=== PATIENT | male | born 1935 | race Caucasian/White ===

== ENCOUNTER 2020-08-29 | Outpatient (REF) | payer MEDICARE, SELFPAY | END 2020-08-29 00:01 | disposition home or self-care (01) | LOC: HO.VC | PROVIDERS: Visit Provider Internal Medicine | DX: Z23 Encounter for immunization (principal) | CPT/HCPCS: 0011A ==

== ENCOUNTER 2020-09-25 | Outpatient (REF) | payer MEDICARE, SELFPAY | END 2020-09-25 00:01 | disposition home or self-care (01) | LOC: HO.VC | PROVIDERS: Visit Provider Internal Medicine | DX: Z23 Encounter for immunization (principal) | CPT/HCPCS: 0012A ==

== ENCOUNTER 2021-02-03 11:53 | Emergency (ER) | payer OTHER, MEDICARE, SELFPAY ==
--- NOTE | ~2021-02-03 | CT_ITS ---
EXAMINATION: CT CERVICAL SPINE WITHOUT CONTRAST CLINICAL INFORMATION: Fall head injury COMPARISON: None TECHNIQUE: Noncontrast head CT This CT examination was performed using dose optimization techniques as appropriate, variously including the following: *Automated exposure control *Adjustment of mA and/or kV according to patient size (this includes techniques or standardized protocols for targeted exams where dose is matched to indication/reason for exam; i.e. extremities or head) *Use of iterative reconstruction technique DLP: 777 mGy-cm FINDINGS: There is radiolucent line through the odontoid process of C2 concerning for subtle nondisplaced hairline fracture, refer image 96 series 12. There is adjacent calcification of the posterior transverse ligament. All other cervical vertebrae are identified maintaining proper height and alignments. No other fractures. Spinous processes are intact. Narrowing of disc spaces and developed osteophyte from the edges of endplates at all levels C2-C3 through C7-T1 suggests underlying degenerative disc disease. There are foraminal narrowings at all levels caused by developed osteophytes and adjacent facet joint hypertrophy. Included structures at skull base are intact. There are degenerative osteoarthritic changes of right TMJ. Included lung apices are clear. CT/CT cervical spine wo con IMPRESSION: 1. Very subtle nondisplaced incomplete hairline fracture through the odontoid process. Encarnacion image. 2. Underlying advanced degenerative disc disease, loss of disc height and developed osteophyte from the edges of endplates. This is seen at all levels. 3. Foraminal stenosis at multiple levels, if patient has neurological symptoms may consider correlation with MRI to assess for possible underlying nerve impingement.
--- NOTE | ~2021-02-03 | CT_ITS ---
CT head/brain wo con CLINICAL INFORMATION: Reason for Exam fall and head injury COMPARISON: 2019 TECHNIQUE: Department standard protocol. This CT examination was performed using dose optimization techniques as appropriate, variously including the following: *Automated exposure control *Adjustment of mA and/or kV according to patient size (this includes techniques or standardized protocols for targeted exams where dose is matched to indication/reason for exam; i.e. extremities or head) *Use of iterative reconstruction technique DLP: 787 mGy-cm FINDINGS: CEREBRAL HEMISPHERES: There is no evidence of intra-axial or extra-axial mass, hemorrhage or acute infarct. BRAIN PARENCHYMA: Deep white matter and paraventricular hypoattenuation, nonspecific; most likely changes secondary to chronic ischemia due to microvascular angiopathy. SUBDURAL SPACE: No bleed. BASAL GANGLIA AND PINEAL GLAND: Unremarkable VENTRICLES: Ventricles are symmetrically dilated, symmetric ventriculomegaly raise concern for possible NPH. This is slightly out of proportion to the degree of atrophy. There is however not significantly changed from prior exam. CEREBELLUM AND BRAINSTEM: No space-occupying mass, hemorrhage or acute infarct. CEREBELLOPONTINE ANGLES: No lesion found. ORBITS: No intraorbital mass. VESSELS: Unremarkable SKULL BASE: Unremarkable INCLUDED SINUSES AT SKULL BASE: Clear SKULL AND SKIN: No fracture or bone lesion found. CT/CT head/brain wo con IMPRESSION: Deep white matter and periventricular hypoattenuation, nonspecific; most likely sequela of chronic microvascular angiopathy ischemia. Bilateral ventriculomegaly, this is symmetrically involving all ventricles, concerning for possible NPH, this however not significantly changed from prior exam. Please correlate with patient's clinical symptoms.
[2021-02-03 12:08] VITALS: BP 109/84; BP 152/82; PULSE 78; RESP 20; TEMP 36.9; O2SAT 96; BMI 28.8
[2021-02-03] MEDS: Lidocaine HCl 1 % MPF 5 ML VIAL 10 ML SUBCUT (12:13)
--- NOTE | 2021-02-03 12:16 | ED_ITS ---
HPI - Fall General Chief Complaint: Fall Stated Complaint: FALL, HIT HEAD Time Seen by Provider: 02/03/21 11:59 Source: patient and EMS Mode of arrival: EMS Limitations: no limitations History of Present Illness HPI Narrative: 85 years old male came in for evaluation of head injury. Patient was sitting on and on the edge of the bed around trying to go to the bathroom patient lost balance and fell hit his head at the corner of a table sustained a sizable laceration involving the forehead and the top of his scalp. Patient declined LOC, no headache, no LOC, patient declined any other injuries, patient with GCS of 15 Related Data Home Medications Medication Instructions Recorded Confirmed amlodipine 1 tab PO DAILY 09/25/20 12/19/20 donepezil 1 tab PO BEDTIME 09/25/20 12/19/20 hydrochlorothiazide 1 tab PO DAILY 09/25/20 12/19/20 memantine 1 tab PO BID 09/25/20 12/19/20 quetiapine 1 tab PO DAILY 09/25/20 12/19/20 sertraline 1 tab PO DAILY 09/25/20 12/19/20 Previous Rx's Medication Instructions Recorded potassium chloride 10 mEq 20 meq PO BID #180 cap 06/26/20 capsule,extended release Allergies Allergy/AdvReac Type Severity Reaction Status Date / Time methotrexate [METHOTREXATE] Allergy Unknown SEIZURE, Verified 12/19/20 11:13 SEIZURES Review of Systems Review of Systems: All other systems are reviewed and are negative Constitutional: Reports as per HPI and Reports no additional constitutional complaints Eyes: Reports as per HPI and Reports no additional eye complaints Reports system reviewed and no additional complaints, except as documented Cardiovascular: Reports as per HPI and Reports no additional cardiovascular complaints Respiratory: Reports as per HPI and Reports no additional respiratory complaints Gastrointestinal: Reports as per HPI and Reports no additional gastrointestinal complaints Genitourinary: Reports no additional female genitourinary complaints Musculoskeletal: Reports no additional musculoskeletal complaints Skin/Breast: Reports system reviewed and no additional complaints, except as docu Psychiatric: Reports no additional psychiatric complaints Endocrine: Reports no additional endocrine complaints Hematologic/Lymphatic: Reports no additional hematologic/lymphatic complaints Allergic/Immunologic: Reports no additional allergic/immunologic complaints Reports system reviewed and no additional complaints, except as documented and Reports Abnormal speech present [facility] Past Medical History Medical History Dementia Eczema Frequent falls HTN (hypertension) Prostate cancer Psoriasis Seizure TIA (transient ischemic attack) Surgical History History of prostatectomy History of surgery Family History Family History Father Myocardial infarction Mother Acute CVA (cerebrovascular accident) Breast cancer Sister Breast cancer Family/Other Leukemia Social History Social History Alcohol intake: current Alcohol intake frequency: holidays/special occasions only Alcohol type: wine Patient Tobacco Use Status: Former Tobacco user Tobacco use type: Cigarette Second Hand Smoke Exposure: No Advance Directives: No Advance Directives Information Provided: Yes Physical Exam Vital Signs: Vital Signs: Last Vital Signs Temp 98.4 F 02/03/21 12:08 Pulse 78 02/03/21 12:08 Resp 20 02/03/21 12:08 BP 109/84 02/03/21 12:08 Pulse Ox 96 02/03/21 12:08 Body Mass Index 28.8 Vital signs have been reviewed as appeared to be correct. Blood pressure normal. Heart rate normal. Respiration rate normal. Temperature normal. Oxygen saturation normal. Appearance: Alert. Oriented X3. No acute distress. Head: 10 cm laceration involving middle of the forehead and going up to the scalp with minor bleeding. Galea is intact. Eyes: PERRLA. EOMI. Conjunctiva and sclera normal. Eyelids normal. ENT: TM's Normal. Pharynx normal. Uvula midline. Moist mucous membranes. No trismus noted. No drooling noted. No muffled voice noted. Neck: Normal inspection, C-collar is in place, using the cervical spine immobilization precaution there is no step-off or deformity. CVS: Normal heart rate and rhythm. Heart sound normal. No murmurs noted. Pulses normal throughout. Respiratory: No respiratory distress. Painless inspiration. Breath sounds normal. No wheezes/rales/rhonchi noted. Chest nontender. No accessory muscle usage noted or decreased air movement noted. Abdomen: Soft and nontender. Bowel sounds normal in all 4 quadrants. No distention noted. No organomegaly noted. No visible injury noted. Back: No CVA tenderness. Full range of motion noted. Skin: Skin warm and dry. Normal skin color. Normal skin turgor. No rashes/lesions/lacerations noted. Extremities: No lower extremity edema. Extremities exhibit normal range of motion. Extremities nontender. Neuro: Oriented. No motor deficit. No sensory deficit. GCS of 15. Course Course Course Narrative: Assessment and plan. 85-year-old male came in for evaluation after mechanical fall for head injury and laceration. Patient was GCS of 15, normal neuro exam, head CT is unremarkable. Cervical spine CT showed hairline nondisplaced fracture of odontoid process, repeat neuro exam show no deficit, patient is in C-collar and complete cervical spine immobilization precaution. The case discussed with Dr. Connors from [facility] ED, patient will be transferred to [facility] for further trauma evaluation. Procedures Laceration Laceration 1: Site: scalp and face Size (cm): 10 Description: linear Depth: simple, single layer Local Anesthetic: lidocaine 1% Amount of anesthesia used (mL): 10 Pre-repair: wound explored Skin layer closed with: other (Eighteen stable placed at the scalp portion, Dermabond at the forehead portion + 7 suture of 4-0 nylon) MDM - Fall Imaging Data Head CT: Radiologist's impression: Deep white matter and periventricular hypoattenuation, nonspecific; most likely sequela of chronic microvascular angiopathy ischemia. Bilateral ventriculomegaly, this is symmetrically involving all ventricles, concerning for possible NPH, this however not significantly changed from prior exam. Please correlate with patient's clinical symptoms. C-spine CT: Radiologist's impression: There is radiolucent line through the odontoid process of C2 concerning for subtle nondisplaced hairline fracture, refer image 96 series 12. There is adjacent calcification of the posterior transverse ligament. All other cervical vertebrae are identified maintaining proper height and alignments. No other fractures. Spinous processes are intact. Narrowing of disc spaces and developed osteophyte from the edges of endplates at all levels C2-C3 through C7-T1 suggests underlying degenerative disc disease. There are foraminal narrowings at all levels caused by developed osteophytes and adjacent facet joint hypertrophy. Included structures at skull base are intact. There are degenerative osteoarthritic changes of right TMJ. Included lung apices are clear. Discharge Plan Discharge Clinical Impression: Closed head injury Qualifiers: Encounter type: initial encounter Qualified Code(s): S09.90XA - Unspecified injury of head, initial encounter Facial laceration Qualifiers: Encounter type: initial encounter Qualified Code(s): S01.81XA - Laceration without foreign body of other part of head, initial encounter Odontoid fracture Qualifiers: Encounter type: initial encounter Fracture type: closed Qualified Code(s): S12.100A - Unspecified displaced fracture of second cervical vertebra, initial encounter for closed fracture Patient Disposition: [facility] Transfer Details: To the emergency department Prescriptions: No Action potassium chloride 10 mEq capsule, extended release 20 meq PO BID Qty: 180 RF: 8 quetiapine 25 mg tablet 1 tab PO DAILY RF: 0 donepezil 10 mg tablet 1 tab PO BEDTIME RF: 0 amlodipine 10 mg tablet 1 tab PO DAILY RF: 0 hydrochlorothiazide 25 mg tablet 1 tab PO DAILY RF: 0 sertraline 50 mg tablet 1 tab PO DAILY RF: 0 memantine 10 mg tablet 1 tab PO BID RF: 0 Referrals: Yosef Monreal MD [Primary Care Provider] - 2 days
[2021-02-03] MEDS: Diphth,Pertus(ACell),Tet Adult 0.5 ML SYRINGE IM (12:40)
[2021-02-03 15:02] LABS: COVID-19 Test Negative (Negative)
== END 2021-02-03 15:20 | disposition short-term general hospital (02) ==
PROVIDERS: Emergency Provider Emergency Medicine; PCP Internal Medicine
DX: S01.81XA Laceration without foreign body of other part of head, initial encounter (principal); S12.110A Anterior displaced Type II dens fracture, initial encounter for closed fracture; I10 Essential (primary) hypertension; Z86.73 Personal history of transient ischemic attack (TIA), and cerebral infarction without residual deficits; W18.30XA Fall on same level, unspecified, initial encounter; Y93.9 Activity, unspecified; Y92.9 Unspecified place or not applicable; Y99.9 Unspecified external cause status; Z20.822 Contact with and (suspected) exposure to COVID-19
CPT/HCPCS: 12015; 36415; 70450; 72125; 87635; 90471; 90715; 99285

== ENCOUNTER 2021-03-20 23:44 | Emergency (ER) | payer OTHER, SELFPAY ==
--- NOTE | ~2021-03-20 | CT_ITS ---
EXAMINATION: NONCONTRAST HEAD CT NONCONTRAST CERVICAL SPINE CT INDICATION INFORMATION: Status post fall COMPARISON: 02/03/2021 TECHNIQUE: Separate noncontrast CT examinations of the head and cervical spine were performed. Coronal head CT images and coronal and sagittal cervical spine images were created at the technologist workstation. DLP: 1175 mGy-cm DOSE LOWERING TECHNIQUES: This CT examination was performed using dose optimization techniques as appropriate, variously including the following: - Automated exposure control - Adjustment of mA and/or kV according to patient size (this includes techniques or standardized protocols for targeted exams were dose is matched to indication/reason for exam; i.e. extremities or head) - Use of iterative reconstruction technique FINDINGS: Head: There is no evidence of acute intracranial hemorrhage or territorial infarction. No abnormal mass-effect or midline shift is seen. Downey to white matter differentiation is well preserved. No extra-axial fluid collections are identified. The ventricles are normal in size. There is mild periventricular white matter hypoattenuation consistent with chronic small vessel ischemic disease. Moderate volume loss is noted. No acute fracture is seen. Right temporoparietal scalp skin val are noted. The mastoid air cells and visualized portions of the paranasal sinuses are well-aerated. Cervical spine: There is anatomic alignment of the vertebral bodies and posterior elements. Vertebral body heights are maintained. There is disc space narrowing of the mid to lower lumbar spine with associated endplate osteophytes. Multilevel facet arthropathy is present, right-sided worse than left. No evidence of acute fracture. No prevertebral soft tissue swelling. Visualized portions of the lung apices are unremarkable. The thyroid gland is unremarkable. CT/CT cervical spine wo con IMPRESSION: 1. Head: No acute intracranial findings. Chronic small vessel ischemic disease and volume loss. 2. Cervical spine: No acute findings identified. Multilevel degenerative changes.
[2021-03-20 23:59] VITALS: BP 142/80; BP 150/84; PULSE 105; PULSE 85; RESP 16; TEMP 35.9; O2SAT 96; O2SAT 97; BMI 23.6
--- NOTE | 2021-03-21 01:26 | ED_ITS ---
HPI - Fall General Chief Complaint: Wound/Laceration Stated Complaint: fall/lac Time Seen by Provider: 03/20/21 23:48 Source: patient and EMS Mode of arrival: EMS Limitations: no limitations History of Present Illness HPI Narrative: Patient was trying to get up from the bed to go to bathroom without walker lost balance hit his right side of the head to the table came with a laceration on the right christianity no loss of consciousness no other injury Related Data Home Medications Medication Instructions Recorded Confirmed amlodipine 10 mg tablet 1 tab PO DAILY 09/25/20 12/19/20 donepezil 10 mg tablet 1 tab PO BEDTIME 09/25/20 12/19/20 hydrochlorothiazide 25 mg tablet 1 tab PO DAILY 09/25/20 12/19/20 memantine 10 mg tablet 1 tab PO BID 09/25/20 12/19/20 quetiapine 25 mg tablet 1 tab PO DAILY 09/25/20 12/19/20 sertraline 50 mg tablet 1 tab PO DAILY 09/25/20 12/19/20 Previous Rx's Medication Instructions Recorded potassium chloride 10 mEq 20 meq PO BID #180 cap 06/26/20 capsule,extended release Allergies Allergy/AdvReac Type Severity Reaction Status Date / Time methotrexate [METHOTREXATE] Allergy Unknown SEIZURE, Verified 12/19/20 11:13 SEIZURES Review of Systems Review of Systems: Yes all other systems are reviewed and are negative PMFSH Past Medical History Medical History Dementia Eczema Frequent falls HTN (hypertension) Prostate cancer Psoriasis Seizure TIA (transient ischemic attack) Surgical History History of prostatectomy History of surgery Family History Family History Father Myocardial infarction Mother Acute CVA (cerebrovascular accident) Breast cancer Sister Breast cancer Family/Other Leukemia Social History Social History Alcohol intake: current Alcohol intake frequency: holidays/special occasions only Alcohol type: wine Patient Tobacco Use Status: Former Tobacco user Tobacco use type: Cigarette Second Hand Smoke Exposure: No Advance Directives: No Advance Directives Information Provided: No Physical Exam Vital Signs: Vital Signs: Last Vital Signs Temp 96.6 F L 03/20/21 23:59 Pulse 85 03/20/21 23:59 Resp 16 03/20/21 23:59 BP 142/80 H 03/20/21 23:59 Pulse Ox 97 03/20/21 23:59 Body Mass Index 23.6 Const: General: comfortable, well developed, alert and awake Orientation/consciousness: patient oriented x3 HENMT: Head: Yes normocephalic Head images: 1. 10 cm long laceration above right eye pain on the right christianity area Ears: hearing grossly normal bilaterally Face and sinus: Yes normal facial exam Eyes: General: appearance normal, both eyes and all related structures Neck: Neck: Yes full ROM and No tender Chest: Chest palpation & inspection: normal inspection of the chest and normal palpation of entire chest wall Resp: Effort & Inspection: normal respiratory effort Auscultation: clear to auscultation bilaterally Cardio: Palpation: normal PMI Rate: regular rate Rhythm: regular rhythm Heart sounds: S1 normal heart sound present and S2 normal heart sound present GI: Inspection: Yes normal to inspection Palpation (GI): Soft to palpation and nontender Auscultation: normal bowel sounds : General: Yes no CVA tenderness Back/Spine/Pelvis: Back: no CVA tenderness Thoracic/Lumbar Spine: No thoracic spinal tenderness and No lumbar spinal tenderness Neuro: General: patient oriented x3 and no focal motor deficits Procedures Laceration Laceration 1: Site: scalp Side (If applicable): right Size (cm): 15 Description: linear Depth: simple, single layer Skin layer closed with: other (Newcomb#[id number]) MDM - Fall MDM Narrative Medical decision making narrative: Patient status post mechanical fall with head laceration CT scan head and C-spine negative laceration repaired with using st aples patient is able to ambulate in the ER using 6 walker family is at bedside will discharge patient home Discharge Plan Discharge Clinical Impression: Laceration Head injury Qualifiers: Encounter type: initial encounter Qualified Code(s): S09.90XA - Unspecified injury of head, initial encounter Patient Disposition: Home, Self-Care Instructions: Head Injury (ED), Head Laceration (ED) Additional Instructions: Local care of the wound as advised Care and caution when ambulating, use walker Staple removal in 2 weeks Prescriptions: No Action potassium chloride 10 mEq capsule, extended release 20 meq PO BID Qty: 180 RF: 8 quetiapine 25 mg tablet 1 tab PO DAILY RF: 0 donepezil 10 mg tablet 1 tab PO BEDTIME RF: 0 amlodipine 10 mg tablet 1 tab PO DAILY RF: 0 hydrochlorothiazide 25 mg tablet 1 tab PO DAILY RF: 0 sertraline 50 mg tablet 1 tab PO DAILY RF: 0 memantine 10 mg tablet 1 tab PO BID RF: 0
== END 2021-03-21 01:36 | disposition home or self-care (01) ==
PROVIDERS: Emergency Provider Internal Medicine
DX: S01.01XA Laceration without foreign body of scalp, initial encounter (principal); S09.90XA Unspecified injury of head, initial encounter; W06.XXXA Fall from bed, initial encounter; I10 Essential (primary) hypertension; F03.90 Unspecified dementia, unspecified severity, without behavioral disturbance, psychotic disturbance, mood disturbance, and anxiety; Y93.89 Activity, other specified; Y92.013 Bedroom of single-family (private) house as the place of occurrence of the external cause; Y99.9 Unspecified external cause status; Z91.81 History of falling; Z86.73 Personal history of transient ischemic attack (TIA), and cerebral infarction without residual deficits; Z85.46 Personal history of malignant neoplasm of prostate
CPT/HCPCS: 12005; 70450; 72125; 99284

== ENCOUNTER 2021-04-19 13:55 | Emergency (ER) | payer OTHER, SELFPAY ==
--- NOTE | ~2021-04-19 | XR_ITS ---
EXAMINATION: RIGHT HAND CLINICAL INFORMATION: Fall with swelling and pain COMPARISON: None TECHNIQUE: 4 views right hand and wrist FINDINGS: No acute fracture or dislocation is evident. There is calcification seen about the region of the triangular fibrocartilage as well as radiocarpal joint superiorly and inferiorly. There is evidence of old avulsion injury about the medial base of the first proximal phalanx. The metacarpophalangeal joints are maintained as are the proximal interphalangeal joints. There is some degenerative spurring seen involving the second, third, and fifth distal interphalangeal joints. No definite erosive changes are identified. No gas within the soft tissues is appreciated. XR/XR hand wrist RT IMPRESSION: No acute fracture or dislocation of the right hand. Degenerative change as described.
[2021-04-19 14:07] VITALS: BP 133/62; PULSE 75; RESP 18; TEMP 36.8; O2SAT 97; BMI 23.6
--- NOTE | 2021-04-19 14:28 | ED.EXTPRO ---
HPI - Extremity Problem General Chief complaint: Extremity Injury, Upper Stated complaint: FALL HAND INJ Time Seen by Provider: 04/19/21 14:14 Source: family () Mode of arrival: wheelchair Limitations: other (dementia) History of Present Illness HPI Narrative: 86-year-old male with dementia here with his for right hand injury he sustained 3 days ago. Patient saw the patient fall, onto his hands and knees. Patient did not hit his head, no loss of consciousness, is not on any blood thinners. Physical therapy who comes to the house, checked patient's arm, and it seemed fine. However, 3 days ago patient's hand became more swollen, and has been red and warm. Patient states it is painful, but cannot localize the pain MD Complaint: extremity pain and extremity swelling Onset (ago): day(s) (3) Pain Consistency: constant Location: right Quality: aching Radiation: none Relieving factors: medication Exacerbating factors: range of motion Associated symptoms: denies other symptoms Related Data Home Medications Medication Instructions Recorded Confirmed amlodipine 10 mg tablet 1 tab PO DAILY 09/25/20 12/19/20 donepezil 10 mg tablet 1 tab PO BEDTIME 09/25/20 12/19/20 hydrochlorothiazide 25 mg tablet 1 tab PO DAILY 09/25/20 12/19/20 memantine 10 mg tablet 1 tab PO BID 09/25/20 12/19/20 quetiapine 25 mg tablet 1 tab PO DAILY 09/25/20 12/19/20 sertraline 50 mg tablet 1 tab PO DAILY 09/25/20 12/19/20 Previous Rx's Medication Instructions Recorded potassium chloride 10 mEq 20 meq PO BID #180 cap 06/26/20 capsule,extended release cephalexin 500 mg capsule 500 mg PO QID 7 Days #28 cap 04/19/21 Allergies Allergy/AdvReac Type Severity Reaction Status Date / Time methotrexate [METHOTREXATE] Allergy Unknown SEIZURE, Verified 12/19/20 11:13 SEIZURES Review of Systems Review of Systems: Unable to obtain d/t dementis; states no fevers, no cough, no URI symptoms, no V/N/D, that patient is in his usual state of health Neurologic: Reports confusion Psychiatric: Psychiatric: Reports confusion PMFSH Past Medical History Medical History Dementia Eczema Frequent falls HTN (hypertension) Prostate cancer Psoriasis Seizure TIA (transient ischemic attack) Surgical History History of prostatectomy History of surgery Family History Family History Father Myocardial infarction Mother Acute CVA (cerebrovascular accident) Breast cancer Sister Breast cancer Family/Other Leukemia Social History Social History Alcohol intake: current Alcohol intake frequency: holidays/special occasions only Alcohol type: wine Patient Tobacco Use Status: Former Tobacco user Tobacco use type: Cigarette Second Hand Smoke Exposure: No Advance Directives: Yes Advance Directives Information Provided: Yes Advance Directives on File: No Physical Exam Vital Signs: Vital Signs: Last Vital Signs Temp 98.1 F 04/19/21 15:13 Pulse 75 04/19/21 15:13 Resp 18 04/19/21 15:13 BP 131/70 04/19/21 15:13 Pulse Ox 97 04/19/21 14:07 Body Mass Index 23.6 Const: General: no acute distress, alert, awake, confusion and poor hygiene Orientation/consciousness: confusion Limitations: other limitations (dementia) HENMT: Head: Yes normal to inspection, Yes normocephalic and Yes atraumatic Ears: hearing grossly normal bilaterally, external ears normal, TM's normal bilaterally and EAC's normal General nose exam: Normal external nose present Face and sinus: Yes normal facial exam and Yes sinuses nontender Mouth: Normal oral and palatal mucosa present Throat: Yes posterior oropharynx normal Eyes: Conjunctivae: conjunctivae normal Pupils: Equal, round and reactive pupils present EOM: EOMs intact bilaterally Neck: Neck: Yes full ROM, Yes no lymphadenopathy and Yes supple Resp: Effort & Inspection: normal respiratory effort and able to speak in complete sentences Auscultation: clear to auscultation bilaterally, no crackles, no rales, no rhonchi and no wheezes Cardio: Rate: regular rate Rhythm: regular rhythm Heart sounds: S1 normal heart sound present and S2 normal heart sound present Skin: Other: Hand is red, warm, and swollen diffusely Neuro: General: tone normal, moves all extremities and confusion Cranial nerves: Yes Equal, round and reactive pupils present Extrem: Other: Hand diffusely red warm and swollen, no point tenderness on wrist or bones of hand Right upper extremity: full ROM, normal capillary refill, edema and Extremity exam: right hand Details: normal capillary refill, neuromotor exam normal, neurosensory exam normal, vascular exam Details: radial pulse present Details: 2+ and normal ROM of fingers Psych: Appearance: grossly normal Affect: normal affect Attitude: cooperative Thought process: Normal thought process present Course Course Course Narrative: Right hand x-ray negative for acute fracture. Started patient on cephalexin, this looks like a cellulitis. Counseled to return hand is not less swollen and red by Thursday Discharge Plan Discharge Clinical Impression: Cellulitis Qualifiers: Site of cellulitis: extremity Site of cellulitis of extremity: upper extremity Laterality: right Qualified Code(s): L03.113 - Cellulitis of right upper limb Patient Disposition: Home, Self-Care Instructions: Cellulitis (ED) Additional Instructions: Please elevate right hand as much as possible as we discussed. Please return to be seen if by Thursday Adrian hand is still red hot swollen or he has any fevers. Please start the antibiotics and give it to him every 6 hours. Prescriptions: New cephalexin 500 mg capsule 500 mg PO QID 7 Days Qty: 28 RF: 0 No Action potassium chloride 10 mEq capsule, extended release 20 meq PO BID Qty: 180 RF: 8 quetiapine 25 mg tablet 1 tab PO DAILY RF: 0 donepezil 10 mg tablet 1 tab PO BEDTIME RF: 0 amlodipine 10 mg tablet 1 tab PO DAILY RF: 0 hydrochlorothiazide 25 mg tablet 1 tab PO DAILY RF: 0 sertraline 50 mg tablet 1 tab PO DAILY RF: 0 memantine 10 mg tablet 1 tab PO BID RF: 0
[2021-04-19 15:13] VITALS: BP 131/70; PULSE 75; RESP 18; TEMP 36.7
== END 2021-04-19 16:00 | disposition home or self-care (01) ==
PROVIDERS: Emergency Provider Emergency Medicine; PCP Internal Medicine
DX: L03.113 Cellulitis of right upper limb (principal); M79.641 Pain in right hand; Z87.891 Personal history of nicotine dependence; Z79.899 Other long term (current) drug therapy
CPT/HCPCS: 73110; 73130; 99283; 99284

== ENCOUNTER 2021-04-23 12:13 | Inpatient (IN) | payer OTHER, MEDICARE, SELFPAY ==
--- NOTE | ~2021-04-23 | US_ITS ---
EXAMINATION: US VENOUS WITH DOPPLER UPPER EXTREMITY, RIGHT CLINICAL INFORMATION: Right upper extremity cellulitis. Assess for occult DVT. COMPARISON: Radiographs right hand wrist 04/19/2021. TECHNIQUE: Ultrasound of the upper extremity is performed using compression sonography and color and pulse Doppler flow with assessment of augmentation of flow. There is also imaging and Doppler assessment of the jugular and subclavian veins. Spectral analysis with color-flow imaging is performed. FINDINGS: Respiratory variation, normal compression, and augmented flow are noted throughout the upper extremity deep veins including the axillary, brachial, cubital, and radial and ulnar veins. There is normal flow in the internal jugular and subclavian veins. There is no visible deep vein thrombophlebitis. There is normal variant with duplicated brachial vein. The basilic superficial vein is not visualized and therefore not evaluated. The cephalic superficial vein is unremarkable. No visible superficial thrombophlebitis. There are some scattered nodes present in the upper arm with normal sarah architecture and color flow. Largest node only 0.4 cm short axis. No soft tissue fluid collection demonstrated. US/US venous duplex UE RT IMPRESSION: No DVT demonstrated in the right upper extremity.
[2021-04-23 12:17] VITALS: BP 133/70; PULSE 80; RESP 18; TEMP 36.8; O2SAT 98; BMI 22.8
--- NOTE | 2021-04-23 14:01 | ED_ITS ---
HPI - General Adult General Chief complaint: General Medical Stated complaint: rt wrist cellulitis, fever Time Seen by Provider: 04/23/21 13:50 Source: patient and family (Daughter) Mode of arrival: ambulatory Limitations: no limitations History of Present Illness HPI narrative: 86-year-old male came in for evaluation right arm cellulitis. Patient was seen in the emergency department 4 days ago and was diagnosed with right arm cellulitis patient was sent home on Keflex, visiting nurse noted today that he had fever in the morning, with extension of the cellulitis to almost the whole entire right arm. Patient otherwise declined any symptoms. Related Data Home Medications Medication Instructions Recorded Confirmed amlodipine 10 mg tablet 1 tab PO DAILY 09/25/20 04/23/21 donepezil 10 mg tablet 1 tab PO BEDTIME 09/25/20 04/23/21 hydrochlorothiazide 25 mg tablet 1 tab PO DAILY 09/25/20 04/23/21 memantine 10 mg tablet 1 tab PO BID 09/25/20 04/23/21 quetiapine 25 mg tablet 1 tab PO DAILY PRN 09/25/20 04/23/21 sertraline 50 mg tablet 1 tab PO DAILY 09/25/20 04/23/21 Previous Rx's Medication Instructions Recorded potassium chloride 10 mEq 20 meq PO BID #180 cap 06/26/20 capsule,extended release cephalexin 500 mg capsule 500 mg PO QID 7 Days #28 cap 04/19/21 Allergies Allergy/AdvReac Type Severity Reaction Status Date / Time methotrexate [METHOTREXATE] Allergy Unknown SEIZURE, Verified 04/23/21 12:17 SEIZURES Review of Systems Review of Systems: All other systems are reviewed and are negative Constitutional: Reports as per HPI and Reports no additional constitutional complaints Eyes: Reports as per HPI and Reports no additional eye complaints Reports system reviewed and no additional complaints, except as documented Cardiovascular: Reports as per HPI and Reports no additional cardiovascular complaints Respiratory: Reports as per HPI and Reports no additional respiratory complaints Gastrointestinal: Reports as per HPI and Reports no additional gastrointestinal complaints Genitourinary: Reports no additional female genitourinary complaints Musculoskeletal: Reports no additional musculoskeletal complaints Skin/Breast: Reports system reviewed and no additional complaints, except as docu Psychiatric: Reports no additional psychiatric complaints Endocrine: Reports no additional endocrine complaints Hematologic/Lymphatic: Reports no additional hematologic/lymphatic complaints Allergic/Immunologic: Reports no additional allergic/immunologic complaints Reports system reviewed and no additional complaints, except as documented and Reports Abnormal speech present [facility] Past Medical History Medical History Dementia Eczema Frequent falls HTN (hypertension) Prostate cancer Psoriasis Seizure TIA (transient ischemic attack) Surgical History History of prostatectomy History of surgery Family History Family History Father Myocardial infarction Mother Acute CVA (cerebrovascular accident) Breast cancer Sister Breast cancer Family/Other Leukemia Social History Social History Alcohol intake: current Alcohol intake frequency: holidays/special occasions only Alcohol type: wine Patient Tobacco Use Status: Former Tobacco user Tobacco use type: Cigarette Second Hand Smoke Exposure: No Advance Directives: Yes Advance Directives Information Provided: Yes Advance Directives on File: No Physical Exam Vital Signs: Vital Signs: Last Vital Signs Temp 98.3 F 04/23/21 12:17 Pulse 80 04/23/21 12:17 Resp 18 04/23/21 12:17 BP 133/70 04/23/21 12:17 Pulse Ox 98 04/23/21 12:17 Body Mass Index 22.8 Vital signs have been reviewed as appeared to be correct. Blood pressure normal. Heart rate normal. Respiration rate normal. Temperature normal. Oxygen saturation normal. Appearance: Alert. Oriented X3. No acute distress. Head: Normal external exam. Normocephalic. Atraumatic. No Cuevas signs noted. No raccoon eyes noted Eyes: PERRLA. EOMI. Conjunctiva and sclera normal. Eyelids normal. ENT: TM's Normal. Pharynx normal. Uvula midline. Moist mucous membranes. No trismus noted. No drooling noted. No muffled voice noted. Neck: Normal inspection. Neck supple. FROM. No adenopathy. Thyroid Normal. No meningeal signs. No neck mass noted. CVS: Normal heart rate and rhythm. Heart sound normal. No murmurs noted. Pulses normal throughout. Respiratory: No respiratory distress. Painless inspiration. Breath sounds normal. No wheezes/rales/rhonchi noted. Chest nontender. No accessory muscle usage noted or decreased air movement noted. Abdomen: Soft and nontender. Bowel sounds normal in all 4 quadrants. No distention noted. No organomegaly noted. No visible injury noted. Back: No CVA tenderness. Full range of motion noted. Skin: Skin warm and dry. Normal skin color. Normal skin turgor. No rashes/lesions/lacerations noted. Extremities: Right upper extremities: There is diffuse swelling, redness, and hotness to almost the entire right upper extremity, neurovascularly intact. Neuro: Oriented X 3. Cranial nerve exam: II-XII are grossly intact No motor deficit. No sensory deficit. Reflexes normal. Course Course Course Narrative: Assessment and plan. 86-year-old male with right arm cellulitis that is worsening despite using Keflex p.o. as an outpatient, patient do not meet SIRS criteria, ultrasound ayden wed no evidence of DVT to the right arm. Patient failed outpatient p.o. antibiotic intake. Will admit the patient for IV antibiotic. Medical Decision Making Lab Data Lab results reviewed: Yes I reviewed the patient's lab results. Result diagrams: 04/23/21 14:16 04/23/21 14:11 Labs: Lab Results 04/23/21 04/23/21 04/23/21 Range/Units 14:09 14:11 14:11 WBC (4.8-10.8) X10*3/uL RBC (4.60-5.80) X10*6/uL Hgb (14.0-18.0) g/dl Hct (42-52) % MCV (80-98) fL MCH (27.0-33.0) pg MCHC (31.0-36.0) g/dl RDW (11.0-16.0) % Plt Count (160-400) X10*3/uL MPV (9.4-12.4) fL Immature Gran % (Auto) (0.0-0.4) % Neut % (Auto) (45-73) % Lymph % (Auto) (20-40) % Otero % (Auto) (2-11) % Eos % (Auto) (0-4) % Baso % (Auto) (0-2) % Lymph # (Auto) (1.2-4.9) X10*3/uL Otero # (Auto) (0.1-1.2) X10*3/uL Eos # (Auto) (0.0-0.4) X10*3/uL Baso # (Auto) (0.0-0.2) X10*3/uL Abs Immat Gran (auto) (0.00-0.03) X10*3/uL Absolute Neuts (auto) (2.0-8.3) X10*3/uL Absolute Nucleated RBC (0.0-0.012) X10*3/uL Nucleated RBC % (auto) (0.0-0.2) /100WBC Sodium 140 (135-145) mmol/L Potassium 3.7 (3.3-5.1) mmol/L Chloride 103 (96-108) mmol/L Carbon Dioxide 28 (22-29) mmol/L Anion Gap 13 (12-20) BUN 15 (9-16) mg/dL Creatinine 1.04 (0.5-1.4) mg/dL Estim Creat Clear Calc 52.5 Estimated GFR > 60 Random Glucose 92 (60-115) mg/dL Lactic Acid 1.4 (0.5-2.0) mmol/L Calcium 10.2 (8.4-10.2) mg/dL Total Bilirubin 0.6 (0.0-1.0) mg/dL Direct Bilirubin 0.2 (0.0-0.5) mg/dL AST 10 (5-37) U/L ALT 12 (0-40) U/L Alkaline Phosphatase 120 H (39-117) U/L Total Protein 6.9 (6.5-8.0) g/dL Albumin 4.0 (3.5-5.0) g/dL Lipase 52 (8-78) U/L COVID-19 (YASEMIN) Negative (Negative) COVID-19 Clin Com See Note 04/23/21 Range/Units 14:16 WBC 10.3 (4.8-10.8) X10*3/uL RBC 4.96 (4.60-5.80) X10*6/uL Hgb 14.3 (14.0-18.0) g/dl Hct 41.9 L (42-52) % MCV 84.5 (80-98) fL MCH 28.8 (27.0-33.0) pg MCHC 34.1 (31.0-36.0) g/dl RDW 13.6 (11.0-16.0) % Plt Count 282 (160-400) X10*3/uL MPV 9.8 (9.4-12.4) fL Immature Gran % (Auto) 0.4 (0.0-0.4) % Neut % (Auto) 74.7 H (45-73) % Lymph % (Auto) 11.4 L (20-40) % Otero % (Auto) 8.8 (2-11) % Eos % (Auto) 4.3 H (0-4) % Baso % (Auto) 0.4 (0-2) % Lymph # (Auto) 1.2 (1.2-4.9) X10*3/uL Otero # (Auto) 0.9 (0.1-1.2) X10*3/uL Eos # (Auto) 0.4 (0.0-0.4) X10*3/uL Baso # (Auto) 0.0 (0.0-0.2) X10*3/uL Abs Immat Gran (auto) 0.04 H (0.00-0.03) X10*3/uL Absolute Neuts (auto) 7.7 (2.0-8.3) X10*3/uL Absolute Nucleated RBC 0.000 (0.0-0.012) X10*3/uL Nucleated RBC % (auto) 0.0 (0.0-0.2) /100WBC Sodium (135-145) mmol/L Potassium (3.3-5.1) mmol/L Chloride (96-108) mmol/L Carbon Dioxide (22-29) mmol/L Anion Gap (12-20) BUN (9-16) mg/dL Creatinine (0.5-1.4) mg/dL Estim Creat Clear Calc Estimated GFR Random Glucose (60-115) mg/dL Lactic Acid (0.5-2.0) mmol/L Calcium (8.4-10.2) mg/dL Total Bilirubin (0.0-1.0) mg/dL Direct Bilirubin (0.0-0.5) mg/dL AST (5-37) U/L ALT (0-40) U/L Alkaline Phosphatase (39-117) U/L Total Protein (6.5-8.0) g/dL Albumin (3.5-5.0) g/dL Lipase (8-78) U/L COVID-19 (YASEMIN) (Negative) COVID-19 Clin Com Imaging Data Right upper extremities venous ultrasound: Radiologist's impression: No DVT demonstrated in the right upper extremity. Discharge Plan Discharge Clinical Impression: Cellulitis Qualifiers: Site of cellulitis: extremity Site of cellulitis of extremity: upper extremity Laterality: right Qualified Code(s): L03.113 - Cellulitis of right upper limb Patient Disposition: Admitted As Inpatient
[2021-04-23 14:22] LABS: MANUAL DIFF FLAG NO
[2021-04-23] MEDS: Piperacillin Sodium/Tazobactam 3.375 GM in 0.9 % Sodium Chloride 50 ML IV ×2 (14:22→22:27)
[2021-04-23] MEDS: 0.9 % Sodium Chloride 1,000 ML 999 ML IVCONT (14:22)
[2021-04-23 14:24] LABS: Basophils Percent Auto 0.4 % (0-2); Eosinophils Absolute Auto 0.4 X10*3/uL (0.0-0.4); Eosinophils Percent Auto 4.3 % (0-4); Hematocrit 41.9 % (42-52); Hemoglobin 14.3 g/dl (14.0-18.0); Imm Gran Abs Auto 0.04 X10*3/uL (0.00-0.03); Imm Gran Pct Auto 0.4 % (0.0-0.4); Lymphocytes Absolute Auto 1.2 X10*3/uL (1.2-4.9); Lymphocytes Percent Auto 11.4 % (20-40); Mean Corpuscular HGB Conc 34.1 g/dl (31.0-36.0); Mean Corpuscular Hemoglobin 28.8 pg (27.0-33.0); Mean Corpuscular Volume 84.5 fL (80-98); Mean Platelet Volume 9.8 fL (9.4-12.4); Monocytes Absolute Auto 0.9 X10*3/uL (0.1-1.2); Monocytes Percent Auto 8.8 % (2-11); Neutrophils Absolute Auto 7.7 X10*3/uL (2.0-8.3); Neutrophils Percent Auto 74.7 % (45-73); Platelet Count 282 X10*3/uL (160-400); Red Blood Count 4.96 X10*6/uL (4.60-5.80); Red Cell Distribution Width 13.6 % (11.0-16.0); White Blood Count 10.3 X10*3/uL (4.8-10.8)
--- NOTE | 2021-04-23 14:26 | PC.NURSE ---
20g lac placed and medicated per emar- pt to us at this time
[2021-04-23 14:33] LABS: Lactic Acid 1.4 mmol/L (0.5-2.0)
[2021-04-23 14:41] LABS: COVID-19 Test Negative (Negative); IDNOW Serial# 9DD0AD1C
[2021-04-23 14:44] LABS: Alanine Aminotransferase 12 U/L (0-40); Alkaline Phosphatase 120 U/L (39-117); Anion Gap 13 (12-20); Aspartate Amino Transferase 10 U/L (5-37); Bilirubin Direct 0.2 mg/dL (0.0-0.5); Bilirubin Total 0.6 mg/dL (0.0-1.0); Blood Urea Nitrogen 15 mg/dL (9-16); Calcium 10.2 mg/dL (8.4-10.2); Carbon Dioxide 28 mmol/L (22-29); Chloride 103 mmol/L (96-108); Creatinine Clr Calc Pharmacy 52.5; Estimated Glomerular Filt Rate > 60; Glucose Random 92 mg/dL (60-115); Lipase 52 U/L (8-78); Potassium 3.7 mmol/L (3.3-5.1); Sodium 140 mmol/L (135-145); Total Protein 6.9 g/dL (6.5-8.0)
--- NOTE | 2021-04-23 15:25 | PHA.MEDREC ---
Pharmacy Consult ? Medication Reconciliation Pharmacy has completed the medication reconciliation.
[2021-04-23] MEDS: vancomycin HCL 1,000 MG in 0.9 % Sodium Chloride 250 ML 270 MG IV (15:38)
[2021-04-23 15:46] VITALS: BP 166/86; PULSE 72; RESP 18; TEMP 36.4; O2SAT 100
[2021-04-23 16:00] VITALS: BP 155/83; PULSE 67; RESP 18; TEMP 36.6; O2SAT 98
--- NOTE | 2021-04-23 16:08 | PM.IMHP ---
History of Present Illness Date of Service: 04/23/21 Attending physician on admission: Nato Bonilla Chief Complaint: Cellulitis failed outpatient therapies 86-year-old male presents with pain and redness in his right arm. Patient was seen in emergency room 4 days ago and diagnosed with cellulitis; placed on Keflex q.i.d. and sent home. Over the course of next several days [facility] noticed his arm was not improving effect was worsening. Daughter states subjective fever and chills at home. Patient will be admitted for IV therapy for cellulitis Review of Systems Review of Systems: Denies chest pain Denies shortness of breath Denies nausea vomiting diarrhea PMFSH Medical History Dementia Eczema Frequent falls HTN (hypertension) Prostate cancer Psoriasis Seizure TIA (transient ischemic attack) Family History Father Myocardial infarction Mother Acute CVA (cerebrovascular accident) Breast cancer Sister Breast cancer Family/Other Leukemia Pertinent family history: . Surgical History History of prostatectomy History of surgery Social History Alcohol intake: never Patient Tobacco Use Status: Former Tobacco user Tobacco use type: Cigarette Second Hand Smoke Exposure: No Use of substances other than those prescribed or required for medical reasons: No Advance Directives: Yes Advance Directives Information Provided: Yes Advance Directives on File: No Meds Allergies Allergy/AdvReac Type Severity Reaction Status Date / Time methotrexate [METHOTREXATE] Allergy Unknown SEIZURE, Verified 04/23/21 12:17 SEIZURES Active Medications: Current Medications Acetaminophen (Acetaminophen 325 Mg Tablet) 650 mg PO Q6H PRN PRN Reason: Pain, Mild (Pain Scale 1-3) Amlodipine Besylate (Amlodipine Besylate 10 Mg Tablet) 10 mg PO DAILY [facility]; Protocol Donepezil HCl (Donepezil Hcl 10 Mg Tablet) 10 mg PO BEDTIME [facility] Enoxaparin Sodium (Enoxaparin Sodium 30 Mg/0.3 Ml Syringe) 30 mg SUBCUT Q24H [facility] Melatonin (Melatonin 3 Mg Tablet) 6 mg PO BEDTIME PRN PRN Reason: Insomnia Memantine (Memantine Hcl 10 Mg Tablet) 10 mg PO BID [facility] Pharmacy Consult (Consult Rx Perform Med Rec) 1 each MISCELLANE ONCE PRN PRN Reason: Consult order Sodium Chloride (0.9 % Sodium Chloride Flush 3 Ml Syringe) 3 ml IVFLUSH QSHIFT [facility] Home Medications Medication Instructions Recorded Confirmed Last Taken Type amlodipine 10 mg tablet 1 tab PO DAILY 09/25/20 04/23/21 Unknown History donepezil 10 mg tablet 1 tab PO BEDTIME 09/25/20 04/23/21 Unknown History hydrochlorothiazide 25 mg tablet 1 tab PO DAILY 09/25/20 04/23/21 Unknown History memantine 10 mg tablet 1 tab PO BID 09/25/20 04/23/21 Unknown History quetiapine 25 mg tablet 1 tab PO DAILY PRN 09/25/20 04/23/21 Unknown History sertraline 50 mg tablet 1 tab PO DAILY 09/25/20 04/23/21 Unknown History Physical Exam Vital Signs and Narrative: Vital Signs: Last Vital Signs Temp 97.6 F 04/23/21 15:46 Pulse 72 04/23/21 15:46 Resp 18 04/23/21 15:46 BP 166/86 H 04/23/21 15:46 Pulse Ox 100 04/23/21 15:46 Body Mass Index 22.8 Const: Other: Awake alert oriented x3. Extremely hard of hearing; right greater than left HENMT: Other: Oropharynx clear. Mucous membranes moist Resp: Other: Clear all rogers. Good Cardio: Other: No S4 positive S1-S2 no S3 no murmurs rubs or gallops GI: Other: Soft nontender nondistended with normoactive bowel sounds. No peritoneal signs Skin: Other: Right upper extremity erythematous finger tips to elbow warm to touch without pain Neuro: Other: Mild confusion related to dementia and hearing loss. Moves all extremities with equal power good eye tracking Results Labs CBC and Chem 7: 04/23/21 14:16 04/23/21 14:11 Labs: Laboratory Results - last 24 hr 04/23/21 04/23/21 04/23/21 14:09 14:11 14:11 MCV MCH MCHC RDW Plt Count MPV Immature Gran % (Auto) Neut % (Auto) Lymph % (Auto) [place] % (Auto) Eos % (Auto) Baso % (Auto) Lymph # (Auto) [place] # (Auto) Eos # (Auto) Baso # (Auto) Abs Immat Gran (auto) Absolute Neuts (auto) Absolute Nucleated RBC Nucleated RBC % (auto) Anion Gap 13 Estim Creat Clear Calc 52.5 Estimated GFR > 60 Random Glucose 92 Lactic Acid 1.4 Calcium 10.2 Total Bilirubin 0.6 Direct Bilirubin 0.2 AST 10 ALT 12 Alkaline Phosphatase 120 H Total Protein 6.9 Albumin 4.0 Lipase 52 COVID-19 (YASEMIN) Negative COVID-19 Clin Com See Note 04/23/21 14:16 MCV 84.5 MCH 28.8 MCHC 34.1 RDW 13.6 Plt Count 282 MPV 9.8 Immature Gran % (Auto) 0.4 Neut % (Auto) 74.7 H Lymph % (Auto) 11.4 L [place] % (Auto) 8.8 Eos % (Auto) 4.3 H Baso % (Auto) 0.4 Lymph # (Auto) 1.2 [place] # (Auto) 0.9 Eos # (Auto) 0.4 Baso # (Auto) 0.0 Abs Immat Gran (auto) 0.04 H Absolute Neuts (auto) 7.7 Absolute Nucleated RBC 0.000 Nucleated RBC % (auto) 0.0 Anion Gap Estim Creat Clear Calc Estimated GFR Random Glucose Lactic Acid Calcium Total Bilirubin Direct Bilirubin AST ALT Alkaline Phosphatase Total Protein Albumin Lipase COVID-19 ([facility]IN) COVID-19 Clin Com Imaging Radiologist's Impressions: Impressions Venous Duplex 04/23/21 13:57 IMPRESSION: No DVT demonstrated in the right upper extremity. Assessment and Plan (1) Cellulitis: Qualifiers: Laterality: right Site of cellulitis: extremity Site of cellulitis of extremity: upper extremity Qualified Code(s): L03.113 - Cellulitis of right upper limb Status: Acute (2) HTN (hypertension): Status: Acute (3) Dementia: Status: Acute 86-year-old male admitted for right arm cellulitis failed outpatient therapy. Ultrasound done emergency room failed to demonstrate the presence of a DVT on the right 1. Cellulitis right upper extremity Zosyn/vancomycin as ordered Blood cultures pending 2. Dementia .... At baseline per daughter who was at bedside Continue Aricept Namenda Seroquel and Zoloft at outpatient dosing 3. Hypertension..... Acceptable control on current therapies Continue amlodipine and hydrochlorothiazide as ordered will continue potassium supplements and follow labs Full code.... Lovenox for DVT prophylaxis Further plans based on clinical course/forthcoming data and response to therapy Quality Stroke Does the patient have a stroke diagnosis?: No VTE Prior VTE?: No VTE Risk Level:: Medical - moderate - high VTE Device Contraindication: Treatment Not Indicated VTE Drug Contraindication: N/A - Med Ordered
[2021-04-23 16:12] LABS: Appearance Urine CLEAR; Color Urine YELLOW; Glucose Urine UA NEG (NEG); Leukocyte Esterase Urine NEG (NEG); Nitrite Urine NEG (NEG); Urine Blood NEG (NEG); Urine Ketones NEG (NEG); Urine Protein NEG (NEG-TRACE)
--- NOTE | 2021-04-23 17:13 | PC.NURSE ---
late entry: 1500 pt cleansed of trace dried stool, bed mobility is fair. RUE is red/swollen/tender from hand to elbow. palpable radial pulse. Pt is WASH[place] but following commands well. Daughter at bedside. All aware of plan of care.
[2021-04-23] MEDS: 0.9 % Sodium Chloride Flush 3 ML SYRINGE IVFLUSH ×2 (17:15→23:55)
--- NOTE | 2021-04-23 17:16 | PC.NURSE ---
rn to rn with devan
[2021-04-23 17:41] VITALS: BP 166/88; PULSE 72; RESP 15; TEMP 36.1; O2SAT 98
--- NOTE | 2021-04-23 18:02 | PHA.PROG ---
Admission Date/Time: April 23, 2021 16:00 Indication: Skin and Soft Tissue Infection Weight in k.307 kg Adjusted body weight in K.5 kg Carson body weight in K.7 kg Obesity Dosing Indication % IBW: N/A Serum Creatinine - Last 168 Hours 04/23/21 14:11 Creatinine 1.04 Estimated CrCl and GFR - Last 168 Hours 04/23/21 14:11 Estim Creat Clear Calc 52.5 Estimated GFR > 60 Vancomycin Loading Dose: No loading dose given. A dose of 1000 mg was given in the ED on 04/23/21 at 1538. Second dose will be given 18 hours later at 0900 on 04/24/21, which predicts serum concentration to be in a therapeutic range after 3rd dose. Current Vancomycin Dosing Regimen: 1000 mg Q24H Date and Time for next Vancomycin Level to be drawn: 04/26 @ 0800 before 4th dose Pharmacist Comments on Vancomycin Plan: Will start vanco Q24H 04/24 @ 0900. Pushing the second dose after Q18H will allow for serum concentration to be therapeutic sooner. Will drawn trough 04/26 @ 0800 prior to 4th dose WIll conitue to monitor SCr daily for change in renal function, and adjust when appropriate. Yuki Anaya, Anuj Vancomycin dosing will take advantage of [employer] as a clinical decision support tool that uses Bayesian modeling to calculate individual patient's pharmacokinetic parameters and forecast the patient's drug concentration time course with the target goal AUC 24 range of 400 - 600 mg/L/hr.
[2021-04-23] MEDS: Enoxaparin Sodium 30 MG/0.3 ML SYRINGE SUBCUT (18:36)
[2021-04-23 19:14] VITALS: BMI 22.8
[2021-04-23] MEDS: Donepezil HCl 10 MG TABLET PO (22:27)
[2021-04-23] MEDS: Memantine HCl 10 MG TABLET PO (22:27)
[2021-04-23 23:56] VITALS: BP 183/87; PULSE 72; RESP 15; TEMP 36.7; O2SAT 96
[2021-04-24 00:17] VITALS: BP 140/80
[2021-04-24] MEDS: Piperacillin Sodium/Tazobactam 3.375 GM in 0.9 % Sodium Chloride 50 ML IV (03:14)
[2021-04-24 03:55] VITALS: BP 158/76; PULSE 63; RESP 15; TEMP 36.6; O2SAT 98
[2021-04-24 04:57] LABS: MANUAL DIFF FLAG NO
[2021-04-24 05:03] LABS: Basophils Absolute Auto 0.1 X10*3/uL (0.0-0.2); Basophils Percent Auto 0.8 % (0-2); Eosinophils Absolute Auto 0.6 X10*3/uL (0.0-0.4); Eosinophils Percent Auto 6.3 % (0-4); Hemoglobin 13.1 g/dl (14.0-18.0); Imm Gran Abs Auto 0.03 X10*3/uL (0.00-0.03); Imm Gran Pct Auto 0.3 % (0.0-0.4); Lymphocytes Absolute Auto 1.1 X10*3/uL (1.2-4.9); Lymphocytes Percent Auto 11.9 % (20-40); Mean Corpuscular HGB Conc 34.5 g/dl (31.0-36.0); Mean Corpuscular Hemoglobin 28.7 pg (27.0-33.0); Mean Corpuscular Volume 83.2 fL (80-98); Mean Platelet Volume 9.6 fL (9.4-12.4); Monocytes Absolute Auto 0.9 X10*3/uL (0.1-1.2); Monocytes Percent Auto 10.2 % (2-11); Neutrophils Absolute Auto 6.5 X10*3/uL (2.0-8.3); Neutrophils Percent Auto 70.5 % (45-73); Platelet Count 271 X10*3/uL (160-400); Red Blood Count 4.57 X10*6/uL (4.60-5.80); Red Cell Distribution Width 13.6 % (11.0-16.0); White Blood Count 9.2 X10*3/uL (4.8-10.8)
[2021-04-24 05:23] LABS: Creatinine Clr Calc Pharmacy 62.8; Estimated Glomerular Filt Rate > 60
[2021-04-24 08:00] VITALS: BP 161/82; PULSE 75; RESP 20; TEMP 36.9; O2SAT 98
--- NOTE | 2021-04-24 08:53 | P.PNIM_ITS ---
Subjective Subjective Date of Service: 04/24/21 Interval History: f/u right hand cellulitis, there is some erythema on hand, hard to jugde if better, patient is not able to tell me if better or not Review of Systems no fever denies pain in the hand Physical Exam Vital Signs: Vital Signs: Last Vital Signs Temp 98.5 F 04/24/21 08:00 Pulse 75 04/24/21 08:00 Resp 20 04/24/21 08:00 BP 161/82 H 04/24/21 08:00 Pulse Ox 98 04/24/21 08:00 Body Mass Index 22.8 General: AO X 1, no acute distress Resp: CTA bilateral CVS: S1,S2,RRR GI: +BS, NT, no distention Skin: Neuro: motor grossly intact Psych: appropriate affect Objective Data Active Medications Acetaminophen (Acetaminophen 325 Mg Tablet) 650 mg PO Q6H PRN PRN Reason: Pain, Mild (Pain Scale 1-3) Amlodipine Besylate (Amlodipine Besylate 10 Mg Tablet) 10 mg PO DAILY [facility]; Protocol Donepezil HCl (Donepezil Hcl 10 Mg Tablet) 10 mg PO BEDTIME [facility] Last Admin: 04/23/21 22:27 Dose: 10 mg Documented by: DIANNE Enoxaparin Sodium (Enoxaparin Sodium 30 Mg/0.3 Ml Syringe) 30 mg SUBCUT Q24H [facility] Last Admin: 04/23/21 18:36 Dose: 30 mg Documented by: DIANNE Hydrochlorothiazide (Hydrochlorothiazide 25 Mg Tablet) 25 mg PO DAILY [facility]; Protocol Piperacillin Sod/Tazobactam (Sod 3.375 gm/ Sodium Chloride) 50 mls @ 100 mls/hr IV Q6H [facility] Last Infusion: 04/24/21 04:35 Dose: 100 mls/hr Documented by: LEONIDAS Vancomycin HCl 1,000 mg/ (Sodium Chloride) 270 mls @ 270 mls/hr IV Q24H [facility] Melatonin (Melatonin 3 Mg Tablet) 6 mg PO BEDTIME PRN PRN Reason: Insomnia Memantine (Memantine Hcl 10 Mg Tablet) 10 mg PO BID [facility] Last Admin: 04/23/21 22:27 Dose: 10 mg Documented by: DIANNE Pharmacy Consult (Consult Rx Perform Med Rec) 1 each MISCELLANE ONCE PRN PRN Reason: Consult order Pharmacy Consult (Consult Rx Vancomycin Dosing) 1 each MISCELLANE DAILY PRN PRN Reason: Consult order Potassium Chloride (Potassium Chloride Er 10 Meq Capsule.Er) 20 meq PO BID [facility] Last Admin: 04/23/21 22:26 Dose: 20 meq Documented by: DIANNE Quetiapine Fumarate (Quetiapine Fumarate 25 Mg Tablet) 25 mg PO DAILY PRN PRN Reason: Anxiety Sertraline HCl (Sertraline Hcl 50 Mg Tablet) 50 mg PO DAILY [facility] Sodium Chloride (0.9 % Sodium Chloride Flush 3 Ml Syringe) 3 ml IVFLUSH QSHIFT [facility] Last Admin: 04/23/21 23:55 Dose: 3 ml Documented by: LEONIDAS Labs CBC & Chem 7: 04/24/21 04:49 04/24/21 04:49 Labs: Laboratory Results - last 24 hr 04/23/21 04/23/21 04/23/21 14:09 14:11 14:11 MCV MCH MCHC RDW Plt Count MPV Immature Gran % (Auto) Neut % (Auto) Lymph % (Auto) [place] % (Auto) Eos % (Auto) Baso % (Auto) Lymph # (Auto) [place] # (Auto) Eos # (Auto) Baso # (Auto) Abs Immat Gran (auto) Absolute Neuts (auto) Absolute Nucleated RBC Nucleated RBC % (auto) Anion Gap 13 Estim Creat Clear Calc 52.5 Estimated GFR > 60 Random Glucose 92 Lactic Acid 1.4 Calcium 10.2 Total Bilirubin 0.6 Direct Bilirubin 0.2 AST 10 ALT 12 Alkaline Phosphatase 120 H Total Protein 6.9 Albumin 4.0 Lipase 52 Urine Color Urine Appearance Urine pH Ur Specific [place] Urine Protein Urine Glucose (UA) Urine Ketones Urine Blood Urine Nitrite Ur Leukocyte Esterase COVID-19 (YASEMIN) Negative COVID-19 Clin Com See Note 04/23/21 04/23/21 04/24/21 14:16 15:55 04:49 MCV 84.5 83.2 MCH 28.8 28.7 MCHC 34.1 34.5 RDW 13.6 13.6 Plt Count 282 271 MPV 9.8 9.6 Immature Gran % (Auto) 0.4 0.3 Neut % (Auto) 74.7 H 70.5 Lymph % (Auto) 11.4 L 11.9 L [place] % (Auto) 8.8 10.2 Eos % (Auto) 4.3 H 6.3 H Baso % (Auto) 0.4 0.8 Lymph # (Auto) 1.2 1.1 L [place] # (Auto) 0.9 0.9 Eos # (Auto) 0.4 0.6 H Baso # (Auto) 0.0 0.1 Abs Immat Gran (auto) 0.04 H 0.03 Absolute Neuts (auto) 7.7 6.5 Absolute Nucleated RBC 0.000 0.000 Nucleated RBC % (auto) 0.0 0.0 Anion Gap Estim Creat Clear Calc Estimated GFR Random Glucose Lactic Acid Calcium Total Bilirubin Direct Bilirubin AST ALT Alkaline Phosphatase Total Protein Albumin Lipase Urine Color YELLOW Urine Appearance CLEAR Urine pH 6.0 Ur Specific [place] 1.010 Urine Protein NEG Urine Glucose (UA) NEG Urine Ketones NEG Urine Blood NEG Urine Nitrite NEG Ur Leukocyte Esterase NEG COVID-19 ([facility]ASEMIN) COVID-19 Clin Com 04/24/21 04:49 MCV MCH MCHC RDW Plt Count MPV Immature Gran % (Auto) Neut % (Auto) Lymph % (Auto) [place] % (Auto) Eos % (Auto) Baso % (Auto) Lymph # (Auto) [place] # (Auto) Eos # (Auto) Baso # (Auto) Abs Immat Gran (auto) Absolute Neuts (auto) Absolute Nucleated RBC Nucleated RBC % (auto) Anion Gap Estim Creat Clear Calc 62.8 Estimated GFR > 60 Random Glucose Lactic Acid Calcium Total Bilirubin Direct Bilirubin AST ALT Alkaline Phosphatase Total Protein Albumin Lipase Urine Color Urine Appearance Urine pH Ur Specific [place] Urine Protein Urine Glucose (UA) Urine Ketones Urine Blood Urine Nitrite Ur Leukocyte Esterase COVID-19 ([facility]IN) COVID-19 Clin Com Assessment and Plan (1) Cellulitis: Status: Acute (2) HTN (hypertension): Status: Acute (3) Lymphocytosis: Status: Chronic (4) Dementia: Status: Acute Assessment and Plan: 86 year old male admitted with right hand celluliitis that did not improve with keflex, it is much better now with Zosyn and Vanco, no fever and therefore will change to PO Doxy and Augmentin and discharge' Continue home mes Quality Stroke Does the patient have a stroke diagnosis?: No VTE Prior VTE?: No VTE Risk Level:: Medical - moderate - high VTE Device Contraindication: Treatment Not Indicated VTE Drug Contraindication: N/A - Med Ordered
--- NOTE | 2021-04-24 09:14 | P.DS_ITS ---
DS: Providers Provider Date of Service: 04/24/21 Date of admission: 04/23/21 16:00 Primary care physician: Yosef Monreal MD DS: Diagnosis Discharge Diagnosis (1) Cellulitis: Status: Acute (2) HTN (hypertension): Status: Acute (3) Lymphocytosis: Status: Chronic (4) Dementia: Status: Acute DS: Summary Hospital Course Hospital Course: Patient was admitted overnight with Cellulitis fo the right that was slow to improve on Keflex, admitted overnight and given Zosyn and Vanco and cellulitis now nearly all resolved--See picture on progress note. Will therefore change Abx to Augmentin and Cellulitis Time Spent with Patient Time attestation: Total time spent providing and/or coordinating discharge services: Discharge coordination time: Greater than 30 minutes Quality: Stroke Does the patient have a stroke diagnosis?: No Physical Exam Vital Signs: Vital Signs: Last Vital Signs Temp 98.5 F 04/24/21 08:00 Pulse 75 04/24/21 08:00 Resp 20 04/24/21 08:00 BP 161/82 H 04/24/21 08:00 Pulse Ox 98 04/24/21 08:00 Body Mass Index 22.8 See progress note of 04/24/21 DS: Data Data Completed and Pending Labs on day of discharge: Laboratory Results - last 24 hr 04/23/21 04/23/21 04/23/21 14:09 14:11 14:11 WBC RBC Hgb Hct MCV MCH MCHC RDW Plt Count MPV Immature Gran % (Auto) Neut % (Auto) Lymph % (Auto) [place] % (Auto) Eos % (Auto) Baso % (Auto) Lymph # (Auto) [place] # (Auto) Eos # (Auto) Baso # (Auto) Abs Immat Gran (auto) Absolute Neuts (auto) Absolute Nucleated RBC Nucleated RBC % (auto) Sodium 140 Potassium 3.7 Chloride 103 Carbon Dioxide 28 Anion Gap 13 BUN 15 Creatinine 1.04 Estim Creat Clear Calc 52.5 Estimated GFR > 60 Random Glucose 92 Lactic Acid 1.4 Calcium 10.2 Total Bilirubin 0.6 Direct Bilirubin 0.2 AST 10 ALT 12 Alkaline Phosphatase 120 H Total Protein 6.9 Albumin 4.0 Lipase 52 Urine Color Urine Appearance Urine pH Ur Specific [place] Urine Protein Urine Glucose (UA) Urine Ketones Urine Blood Urine Nitrite Ur Leukocyte Esterase COVID-19 (YASEMIN) Negative COVID-19 Clin Com See Note 04/23/21 04/23/21 04/24/21 14:16 15:55 04:49 WBC 10.3 9.2 RBC 4.96 4.57 L Hgb 14.3 13.1 L Hct 41.9 L 38.0 L MCV 84.5 83.2 MCH 28.8 28.7 MCHC 34.1 34.5 RDW 13.6 13.6 Plt Count 282 271 MPV 9.8 9.6 Immature Gran % (Auto) 0.4 0.3 Neut % (Auto) 74.7 H 70.5 Lymph % (Auto) 11.4 L 11.9 L [place] % (Auto) 8.8 10.2 Eos % (Auto) 4.3 H 6.3 H Baso % (Auto) 0.4 0.8 Lymph # (Auto) 1.2 1.1 L [place] # (Auto) 0.9 0.9 Eos # (Auto) 0.4 0.6 H Baso # (Auto) 0.0 0.1 Abs Immat Gran (auto) 0.04 H 0.03 Absolute Neuts (auto) 7.7 6.5 Absolute Nucleated RBC 0.000 0.000 Nucleated RBC % (auto) 0.0 0.0 Sodium Potassium Chloride Carbon Dioxide Anion Gap BUN Creatinine Estim Creat Clear Calc Estimated GFR Random Glucose Lactic Acid Calcium Total Bilirubin Direct Bilirubin AST ALT Alkaline Phosphatase Total Protein Albumin Lipase Urine Color YELLOW Urine Appearance CLEAR Urine pH 6.0 Ur Specific [place] 1.010 Urine Protein NEG Urine Glucose (UA) NEG Urine Ketones NEG Urine Blood NEG Urine Nitrite NEG Ur Leukocyte Esterase NEG COVID-19 ([facility]EMIN) COVID-19 Clin Com 04/24/21 04:49 WBC RBC Hgb Hct MCV MCH MCHC RDW Plt Count MPV Immature Gran % (Auto) Neut % (Auto) Lymph % (Auto) [place] % (Auto) Eos % (Auto) Baso % (Auto) Lymph # (Auto) [place] # (Auto) Eos # (Auto) Baso # (Auto) Abs Immat Gran (auto) Absolute Neuts (auto) Absolute Nucleated RBC Nucleated RBC % (auto) Sodium Potassium Chloride Carbon Dioxide Anion Gap BUN Creatinine 0.87 Estim Creat Clear Calc 62.8 Estimated GFR > 60 Random Glucose Lactic Acid Calcium Total Bilirubin Direct Bilirubin AST ALT Alkaline Phosphatase Total Protein Albumin Lipase Urine Color Urine Appearance Urine pH Ur Specific [place] Urine Protein Urine Glucose (UA) Urine Ketones Urine Blood Urine Nitrite Ur Leukocyte Esterase COVID-19 ([facility]) COVID-19 Clin Com Discharge Plan Discharge Anticipated Discharge Date/Time: 04/24/21 09:11 Patient Disposition: Home, Self-Care Discharge Diagnosis: Cellulitis of the right hand Referrals: Yosef Monreal MD [Primary Care Provider] - 1 Week Discharge Medications: New doxycycline hyclate 100 mg Tablet 100 mg PO Q12H Qty: 9 RF: 0 amoxicillin-pot clavulanate 500-125 mg Tablet 500 mg PO Q12H Qty: 9 RF: 0 Continued potassium chloride 10 mEq capsule, extended release 20 meq PO BID Qty: 180 RF: 8 quetiapine 25 mg tablet 1 tab PO DAILY PRN (Reason: Anxiety) RF: 0 donepezil 10 mg tablet 1 tab PO BEDTIME RF: 0 amlodipine 10 mg tablet 1 tab PO DAILY RF: 0 hydrochlorothiazide 25 mg tablet 1 tab PO DAILY RF: 0 sertraline 50 mg tablet 1 tab PO DAILY RF: 0 memantine 10 mg tablet 1 tab PO BID RF: 0 Discontinued cephalexin 500 mg capsule 500 mg PO QID 7 Days Qty: 28 RF: 0 Discharge Orders: Discharge Order (Routine); Ordered 04/24/21 Ordered By: Kt Arita Diet: advance to usual diet Activity on Discharge: As tolerated Stand Alone Forms: Patient Portal Discharge page Care Plan Goals: Full recovery from cellulitis Health Concerns: Cellulitis of the hand Plan of Treatment: Take Doxycyline and Augmentin and follow up with PCP in a week Assessment: As above Discharge Date/Time: 04/24/21 17:52
[2021-04-24] MEDS: 0.9 % Sodium Chloride Flush 3 ML SYRINGE IVFLUSH (09:56)
[2021-04-24] MEDS: Sertraline HCL 50 MG TABLET PO (09:57)
[2021-04-24] MEDS: hydroCHLOROthiazide 25 MG TABLET PO (09:57)
[2021-04-24] MEDS: Amoxicillin/Potassium Clav 500 MG TABLET PO (09:57)
[2021-04-24] MEDS: amLODIPine Besylate 10 MG TABLET PO (09:57)
[2021-04-24] MEDS: Memantine HCl 10 MG TABLET PO (09:58)
--- NOTE | 2021-04-24 11:19 | MHC.CM.PN ---
PATIENT LIVES WITH HIS . HE HAS A HOUSE KEEPER 2 TIMES PER WEEK, AND IS ACTIVE WITH A VISITING NURSE AGENCY 2X/WEEK. IS UNABLE TO RECALL THE NAME OF AGENCY, BUT KEEPS IN CONTACT DAILY WITH THE RN PATIENT HAS RN SKILLS AND PHYSICAL THERAPY. HIS RN WILL VISIT THIS THURSDAY, UNLESS FEELS HE NEEDS A VISIT SOONER. PATIENT HAS A WALKER AND RECENTLY ORDERED A WHEEL CHAIR. PATIENT AND RELY ON OTHERS FOR TRANSPORTATION NEEDS. PLAN IS HOME TODAY WITH RESUMPTION OF SERVICES. HCP ON FILE AND VERIFIED IMM 04/24 IN CHART.
[2021-04-24 11:36] VITALS: BP 156/86; PULSE 82; RESP 18; TEMP 36.8; O2SAT 100
--- NOTE | 2021-04-24 14:40 | MHC.CM.PN ---
PATIENT IS DISCHARGED HOME. FAMILY TO PROVIDE TRANSPORT. RN AWARE.
[2021-04-24 15:38] VITALS: BP 149/76; PULSE 75; RESP 15; TEMP 36.9; O2SAT 98
== END 2021-04-24 17:52 | disposition home or self-care (01) | DRG 603 ==
LOC: HO.ED 14:55 → HO.EDOVER 16:13 → HO.S3 16:31
PROVIDERS: Admitting Provider Hospitalist; Emergency Provider Emergency Medicine; PCP Internal Medicine; Visit Provider Internal Medicine
DX: L03.113 Cellulitis of right upper limb (principal); F03.90 Unspecified dementia, unspecified severity, without behavioral disturbance, psychotic disturbance, mood disturbance, and anxiety; I10 Essential (primary) hypertension; D72.820 Lymphocytosis (symptomatic); Z20.822 Contact with and (suspected) exposure to COVID-19; Z87.891 Personal history of nicotine dependence; Z79.899 Other long term (current) drug therapy
CPT/HCPCS: 36415; 80048; 80076; 81003; 82565; 83605; 83690; 85025; 87040; 87147; 87205; 87635; 93971; 99285; J1650; J2543; J3370

== ENCOUNTER 2021-05-28 08:28 | Outpatient (REF) | payer MEDICARE, SELFPAY ==
[2021-05-28 11:34] LABS: MANUAL DIFF FLAG NO
[2021-05-28 11:41] LABS: Basophils Absolute Auto 0.1 X10*3/uL (0.0-0.2); Basophils Percent Auto 0.8 % (0-2); Eosinophils Absolute Auto 0.6 X10*3/uL (0.0-0.4); Eosinophils Percent Auto 6.6 % (0-4); Hematocrit 43.5 % (42.0-52.0); Hemoglobin 14.6 g/dl (14.0-18.0); Imm Gran Abs Auto 0.04 X10*3/uL (0.00-0.03); Imm Gran Pct Auto 0.4 % (0.0-0.4); Lymphocytes Percent Auto 20.9 % (20-40); Mean Corpuscular HGB Conc 33.6 g/dl (31.0-36.0); Mean Corpuscular Hemoglobin 28.2 pg (27.0-33.0); Mean Corpuscular Volume 84.1 fL (80.0-98.0); Monocytes Absolute Auto 0.9 X10*3/uL (0.1-1.2); Monocytes Percent Auto 9.5 % (2-11); Neutrophils Absolute Auto 6.01 x10*3/uL (2.0-8.3); Neutrophils Percent Auto 61.8 % (45-73); Platelet Count 281 X10*3/uL (160-400); Red Blood Count 5.17 X10*6/uL (4.60-5.80); White Blood Count 9.7 X10*3/uL (4.8-10.8)
[2021-05-28 12:03] LABS: Anion Gap 13 (12-20); Blood Urea Nitrogen 16 mg/dL (9-16); Calcium 9.4 mg/dL (8.4-10.2); Carbon Dioxide 25 mmol/L (22-29); Chloride 106 mmol/L (96-108); Estimated Glomerular Filt Rate > 60; Glucose Random 87 mg/dL (60-115); Potassium 3.7 mmol/L (3.3-5.1); Sodium 140 mmol/L (135-145)
== END 2021-05-28 08:29 | disposition home or self-care (01) ==
LOC: HO.LHD 08:28
PROVIDERS: Visit Provider Internal Medicine
DX: Z00.00 Encounter for general adult medical examination without abnormal findings (principal); R51.9 Headache, unspecified
CPT/HCPCS: 36415; 80048; 85025

== ENCOUNTER 2022-08-16 10:16 | Emergency (ER) | payer MEDICARE, SELFPAY ==
[2022-08-16] VITALS (7 sets, daily range): BP systolic 119–181; BP diastolic 62–112; PULSE 65–95; RESP 16–18; TEMP 36.4–37.9; O2SAT 93–95; BMI 22.2
--- NOTE | ~2022-08-16 | CT_ITS ---
EXAMINATION: HEAD CT WITHOUT CONTRAST CERVICAL SPINE CT WITHOUT CONTRAST CLINICAL INFORMATION: Fall, dizziness, confusion. COMPARISON: CT 03/21/2021 TECHNIQUE: Contiguous axial imaging of the head was performed without the administration of IV contrast. Axial multidetector volumetric images were also performed through the cervical spine without contrast. Multiplanar reconstructed images in coronal and sagittal orientations were submitted. DOSE: 269 mGy-cm FINDINGS: HEAD: There is no evidence of acute intracranial hemorrhage or edematous territorial infarction. No abnormal mass-effect or midline shift. No extra-axial fluid collections. Downey to white matter differentiation is well preserved. Commensurate prominence of the ventricles and sulci is compatible with generalized parenchymal volume loss. There is periventricular and subcortical white matter hypoattenuation, most likely representing microangiopathic disease . No acute calvarial fracture. Left maxillary, ethmoid and sphenoid sinus disease. Mastoid air cells are well-aerated. CERVICAL SPINE: Diffuse bone demineralization limiting sensitivity. Increased lordotic curvature of the cervical spine. There is anatomic alignment of the vertebral bodies and posterior elements. The atlantoaxial and atlantooccipital articulations are maintained. Calcific/ossific densities around and superior to the dens, is unchanged from previous, chronic in nature.. Vertebral body heights are maintained. No evidence of acute fracture. Multilevel cervical spondylosis. More prominent changes of severe disc degeneration at C5-6, C6-7. Multilevel facet degeneration. No evidence of acute fracture. No prevertebral soft tissue swelling. Visualized lung apices appear unremarkable. The thyroid gland is unremarkable. CT/CT cervical spine wo IV con IMPRESSION: 1. No CT evidence acute intracranial hemorrhage or edematous territorial infarction. 2. Left maxillary, ethmoid and sphenoid sinus disease. 3.No acute fracture or malalignment in the cervical spine. 4. Cervical spondylosis.
--- NOTE | ~2022-08-16 | XR_ITS ---
EXAMINATION: XR CHEST CLINICAL INFORMATION: Fever COMPARISON: CT scan of October 23, 2017 and plain film study of June 02, 2016 TECHNIQUE: AP sitting view of the chest was obtained. FINDINGS: There are small lung volumes. There appear to be some hazy densities present overlying the mid peripheral left lung and right upper lung. These may be related to groundglass opacities or superimposition of bone and soft tissue structures. No definite confluent airspace disease is appreciated. Heart normal size. No evidence of pulmonary edema. No pneumothorax or pleural effusion. XR/XR chest 1V IMPRESSION: Question groundglass opacities right upper lung and mid peripheral left lung versus superimposition of structures. No definite confluent parenchymal disease is appreciated.
--- NOTE | 2022-08-16 10:24 | ECG_ITS ---
Test Reason : FALL Blood Pressure : / mmHG Vent. Rate : 084 BPM Atrial Rate : 084 BPM P-R Int : 190 ms QRS Dur : 148 ms QT Int : 426 ms P-R-T Axes : 054 015 026 degrees QTc Int : 503 ms Normal sinus rhythm Right bundle branch block Minimal voltage criteria for LVH, may be normal variant ( R in aVL ) Inferior infarct , age undetermined Abnormal ECG When compared with ECG of 30-DEC-2015 19:34, Right bundle branch block is now Present Inferior infarct is now Present Referred By: Sydni Hunt Electronically Signed By:TYLER BUCHANAN MD
--- NOTE | 2022-08-16 10:30 | ED_ITS ---
HPI - Altered Mental Status General Chief Complaint: Fall Stated Complaint: confusion, dizziness, dementia Time Seen by Provider: 08/16/22 10:23 Source: patient, family and EMS Mode of arrival: EMS Limitations: altered mental status History of Present Illness HPI narrative: 87 yo male with history of Alzhemier's disease, psoriasis, HTN, history of cellulitis, poor sight, hard of hearing who presents to the ER from home with low grade fevers, increased weakness and difficulty walking that started yesterday. Patient is confused and not very mobile at baseline, he ambulates with a walker. His he does not leave the home and doctor's come to him every few months. She called them yesterday for evaluation because he was more weak and confused than usual. He is having difficulty walking. They performed lab work and urine test. They called her today and stated he had a low-grade fever and possible infection. They encouraged her to send him to the emergency department. denies any vomiting, difficulty breathing, diarrhea. He has had a runny nose and a slight cough. On arrival to the ER the patient is confused, disoriented, restless. History obtained from the and daughter. MD complaint: confusion and weakness Onset (ago): day(s) (1) Timing confirmed by: spouse, family member and caregiver Severity: moderate Consistency of symptoms: getting Worse Context: recent fever Associated symptoms: cough, fever, malaise, weakness, difficulty walking and incontinence Related Data Home Medications Medication Instructions Recorded Confirmed donepezil 10 mg tablet 1 tab PO BEDTIME 09/25/20 05/09/21 memantine 10 mg tablet 1 tab PO BID 09/25/20 05/09/21 quetiapine 25 mg tablet 1 tab PO DAILY PRN Anxiety 09/25/20 05/09/21 sertraline 50 mg tablet 1 tab PO DAILY 09/25/20 05/09/21 potassium chloride 10 mEq 2 cap PO BID 08/16/22 capsule,extended release triamcinolone acetonide 0.1 % topical BID 08/16/22 topical ointment Previous Rx's Medication Instructions Recorded amlodipine 10 mg tablet 10 mg PO DAILY #90 tabs 05/20/21 hydrochlorothiazide 25 mg tablet 25 mg PO DAILY #90 tabs 05/20/21 Allergies Allergy/AdvReac Type Severity Reaction Status Date / Time methotrexate [METHOTREXATE] Allergy Unknown SEIZURE, Verified 05/09/21 09:10 SEIZURES Review of Systems Review of Systems: Yes all other systems are reviewed and are negative [facility] Past Medical History Medical History (Updated 08/16/22 @ 13:48 by IVANIA Alberts) Dementia Eczema Frequent falls HTN (hypertension) Lymphocytosis Prostate cancer Psoriasis Seizure TIA (transient ischemic attack) Surgical History History of prostatectomy History of surgery Family History Family History Father Myocardial infarction Mother Acute CVA (cerebrovascular accident) Breast cancer Sister Breast cancer Family/Other Leukemia Social History Social History Household Members: Family Housing: House Do you presently have visiting nurse or other home services: Yes Alcohol intake: never Patient Tobacco Use Status: Former Tobacco user Tobacco use type: Cigarette Second Hand Smoke Exposure: No Advance Directives: Yes Advance Directives on File: No Advance Directives Date on File: 04/23/21 service: Yes Current occupational status: retired and disabled Physical Exam ED Vital Signs: Vital Signs - 24 hr 08/16/22 10:35 08/16/22 12:51 Temperature 98.4 F 99.3 F Pulse Rate 88 88 Respiratory Rate 18 18 Blood Pressure 181/86 H 146/81 H Pulse Oximetry 95 95 Oxygen Delivery Method Room Air Room Air BMI result Body Mass Index 22.2 Appearance: Alert elderly male lying on the stretcher. Oriented X1. No acute distress. Eyes: Pupils equal, round and reactive to light. Does not make eye contact, poor vision. ENT: Pharynx normal. Dry mucous membranes. Neck: Normal inspection. Neck supple. CVS: Normal heart rate and rhythm. Pulses normal. Respiratory: No respiratory distress. Breath sounds normal. Abdomen: Soft and nontender. +BS x4 Skin: Skin warm and dry. Skin is erythematous, dry and flaky throughout. Extremities: No lower extremity edema. Neuro: Oriented X 1. Moves all extremities, can follow simple commands but has short attention span, fidgety and restless. Requires frequent redirecting. Nonfocal. Global weakness throughout Course Course Course Narrative: 87-year-old male with a history of Alzheimer's disease, hypertension, psoriasis, cellulitis in the past who presents to the ER for evaluation of increased weakness, confusion as well as some mild URI symptoms. On arrival to the ER he is confused, but awake and alert. He is hypertensive and afebrile. Will get metabolic workup, infectious workup. Will gently hydrate with IV fluids for now. Will monitor closely. Reevaluation(s) Reevaluation #1: Patient does not have leukocytosis. His H&H is stable. No metabolic derangements on his lab workup. He was found to be COVID positive. He is vaccinated per family. SpO2 95% Reevaluation #2: CT neck without acute injury or stroke. CXR with ?GGO RUL. Continues to saturate well Restless and requiring frequent re direction. Given low-dose of Seroquel with good affect. Likely acute delirium in the setting of viral infection. Lab and imaging tests d/w daughter at the bedside. Will plan to have him evaluated by physical therapy for short term rehab placement. Not safe for d/c. Medically stable from a covid perspective. Physician observation started at 13:30. Patient placed in physician observation because patient is awaiting PT evaluation for the possible need of STR. At the time observation was started patient's vital signs were stable. Patient is alert, disoriented and confused. Neuro exam is non-focal. CV: RRR and lungs are clear. Will continue to monitor. Medications Administered Discontinued Medications Generic Name Dose Route Start Last Admin Trade Name Freq PRN Reason Stop Dose Admin Sodium Chloride 1,000 mls @ 999 mls/hr 08/16/22 10:30 08/16/22 12:51 Ns IVCONT 08/16/22 11:30 Infused .Q1H1M HERI Infusion Potassium Chloride 40 meq 08/16/22 11:29 08/16/22 11:50 Potassium Chloride Packet 20 Meq Packet PO 08/16/22 11:30 40 meq ONCE ONE Administration Quetiapine Fumarate 25 mg 08/16/22 11:51 08/16/22 12:51 Quetiapine Fumarate 25 Mg Tablet PO 08/16/22 11:52 25 mg ONCE ONE Administration Medical Decision Making Medical Decision Making [facility] Narrative: 87-year-old male with history of Alzheimer's dementia, hypertension, cellulitis, psoriasis coming in with low-grade fevers, mild URI symptoms along with weakness and confusion at home. Difficulty ambulating. On exam is difficult to get a thorough and complete neurologic assessment due to confusion, restlessness. He is moving all extremities, normal speech. No focal deficit on examination. Doubt acute stroke. More likely a metabolic or infectious process. Will check lab workup and CT scan of his head and neck given report of mechanical fall today. Differential Diagnosis Differential Diagnoses: The differential diagnosis associated with the presentation includes Worsening dementia, acute delirium, acute infection including possible UTI, pneumonia, bacteremia, gastroenteritis, URI, COVID, flu, RSV, other viral syndrome, dehydration, metabolic derangement, anemia, stroke Admission/Observation Consideration of admission/observation: Escalation of care including admission/observation considered Not safe for discharge home. Will place and physician observation for further monitoring and have Physical therapy evaluate him. Will keep him on pulse oximetry and monitor for hypoxia associated with COVID. Currently maintaining saturations well and does not require hospitalization for management of his COVID-19 Lab Data MDM Lab Attestation statement: I reviewed the patient's lab results. Mild hypokalemia, normal CBC, mild SAMANTHA based on previous renal function. 08/16/22 10:51 08/16/22 10:51 Labs: Lab Results 08/16/22 08/16/22 08/16/22 Range/Units 10:51 10:51 10:51 WBC 7.4 (4.8-10.8) X10*3/uL RBC 5.65 (4.60-5.80) X10*6/uL Hgb 15.7 (14.0-18.0) g/dl Hct 46.7 (42.0-52.0) % MCV 82.7 (80.0-98.0) fL MCH 27.8 (27.0-33.0) pg MCHC 33.6 (31.0-36.0) g/dl RDW 13.9 (11.0-16.0) % Plt Count 195 D (160-400) X10*3/uL MPV 9.4 (9.4-12.4) fL Immature Gran % (Auto) 0.4 (0.0-0.4) % Neut % (Auto) 63.2 (45-73) % Lymph % (Auto) 13.2 L (20-40) % [place] % (Auto) 20.8 H (2-11) % Eos % (Auto) 0.4 (0-4) % Baso % (Auto) 2.0 (0-2) % Lymph # (Auto) 1.0 L (1.2-4.9) X10*3/uL [place] # (Auto) 1.5 H (0.1-1.2) X10*3/uL Eos # (Auto) 0.0 (0.0-0.4) X10*3/uL Baso # (Auto) 0.2 (0.0-0.2) X10*3/uL Abs Immat Gran (auto) 0.03 (0.00-0.03) X10*3/uL Absolute Neuts (auto) 4.7 (2.0-8.3) x10*3/uL Absolute Nucleated RBC 0.000 (0.0-0.012) X10*3/uL Nucleated RBC % (auto) 0.0 (0.0-0.2) /100WBC Smear Tech's Comments VERIFIED Sodium 142 (135-145) mmol/L Potassium 3.2 L (3.3-5.1) mmol/L Chloride 103 (96-108) mmol/L Carbon Dioxide 26 (22-29) mmol/L Anion Gap 16 (12-20) BUN 14 (9-16) mg/dL Creatinine 1.37 (0.5-1.4) mg/dL Estim Creat Clear Calc 39.1 Estimated GFR 49 Random Glucose 88 (60-115) mg/dL Lactic Acid 1.3 (0.5-2.0) mmol/L Calcium 10.1 D (8.4-10.2) mg/dL Magnesium 1.5 L (1.6-2.6) mg/dL Total Bilirubin 1.0 (0.0-1.0) mg/dL Direct Bilirubin 0.4 (0.0-0.5) mg/dL AST 69 H (5-37) U/L ALT 60 H (0-40) U/L Alkaline Phosphatase 163 H (39-117) U/L Ammonia (13-55) umol/L Troponin I High Sens (<3.5-35.0) ng/L Total Protein 6.7 (6.5-8.0) g/dL Albumin 4.1 (3.5-5.0) g/dL TSH (0.32-4.0) uIU/mL Urine Color Urine Appearance Urine pH (5.0-9.0) Ur Specific Perkins (1.005-1.025) Urine Protein (Neg-Trace) mg/dL Urine Glucose (UA) (Negative) mg/dL Urine Ketones (Negative) mg/dL Urine Blood (Negative) Urine Nitrite (Negative) Ur Leukocyte Esterase (Negative) Urine Opiates Screen (Not Detect) Urine Fentanyl Screen (Not Detect) Ur Barbiturates Screen (Not Detect) Ur Phencyclidine Scrn (Not Detect) Ur Amphetamines Screen (Not Detect) U Benzodiazepines Scrn (Not Detect) Urine Cocaine Screen (Not Detect) U Marijuana (THC) Screen (Not Detect) Ethyl Alcohol mg/dL Influenza Type A (PCR) (Negative) Influenza Type B (PCR) (Negative) RSV RNA Qual (PCR) (Negative) SARS-CoV-2 RNA (RT-PCR) (Negative) 08/16/22 08/16/22 08/16/22 Range/Units 10:51 10:51 10:51 WBC (4.8-10.8) X10*3/uL RBC (4.60-5.80) X10*6/uL Hgb (14.0-18.0) g/dl Hct (42.0-52.0) % MCV (80.0-98.0) fL MCH (27.0-33.0) pg MCHC (31.0-36.0) g/dl RDW (11.0-16.0) % Plt Count (160-400) X10*3/uL MPV (9.4-12.4) fL Immature Gran % (Auto) (0.0-0.4) % Neut % (Auto) (45-73) % Lymph % (Auto) (20-40) % [place] % (Auto) (2-11) % Eos % (Auto) (0-4) % Baso % (Auto) (0-2) % Lymph # (Auto) (1.2-4.9) X10*3/uL [place] # (Auto) (0.1-1.2) X10*3/uL Eos # (Auto) (0.0-0.4) X10*3/uL Baso # (Auto) (0.0-0.2) X10*3/uL Abs Immat Gran (auto) (0.00-0.03) X10*3/uL Absolute Neuts (auto) (2.0-8.3) x10*3/uL Absolute Nucleated RBC (0.0-0.012) X10*3/uL Nucleated RBC % (auto) (0.0-0.2) /100WBC Smear Tech's Comments Sodium (135-145) mmol/L Potassium (3.3-5.1) mmol/L Chloride (96-108) mmol/L Carbon Dioxide (22-29) mmol/L Anion Gap (12-20) BUN (9-16) mg/dL Creatinine (0.5-1.4) mg/dL Estim Creat Clear Calc Estimated GFR Random Glucose (60-115) mg/dL Lactic Acid (0.5-2.0) mmol/L Calcium (8.4-10.2) mg/dL Magnesium (1.6-2.6) mg/dL Total Bilirubin (0.0-1.0) mg/dL Direct Bilirubin (0.0-0.5) mg/dL AST (5-37) U/L ALT (0-40) U/L Alkaline Phosphatase (39-117) U/L Ammonia (13-55) umol/L Troponin I High Sens 12.8 (<3.5-35.0) ng/L Total Protein (6.5-8.0) g/dL Albumin (3.5-5.0) g/dL TSH (0.32-4.0) uIU/mL Urine Color Urine Appearance Urine pH (5.0-9.0) Ur Specific Perkins (1.005-1.025) Urine Protein (Neg-Trace) mg/dL Urine Glucose (UA) (Negative) mg/dL Urine Ketones (Negative) mg/dL Urine Blood (Negative) Urine Nitrite (Negative) Ur Leukocyte Esterase (Negative) Urine Opiates Screen (Not Detect) Urine Fentanyl Screen (Not Detect) Ur Barbiturates Screen (Not Detect) Ur Phencyclidine Scrn (Not Detect) Ur Amphetamines Screen (Not Detect) U Benzodiazepines Scrn (Not Detect) Urine Cocaine Screen (Not Detect) U Marijuana (THC) Screen (Not Detect) Ethyl Alcohol < 10 mg/dL Influenza Type A (PCR) NEGATIVE (Negative) Influenza Type B (PCR) NEGATIVE (Negative) RSV RNA Qual (PCR) NEGATIVE (Negative) SARS-CoV-2 RNA (RT-PCR) POSITIVE A (Negative) 08/16/22 08/16/22 08/16/22 Range/Units 10:51 10:51 12:04 WBC (4.8-10.8) X10*3/uL RBC (4.60-5.80) X10*6/uL Hgb (14.0-18.0) g/dl Hct (42.0-52.0) % MCV (80.0-98.0) fL MCH (27.0-33.0) pg MCHC (31.0-36.0) g/dl RDW (11.0-16.0) % Plt Count (160-400) X10*3/uL MPV (9.4-12.4) fL Immature Gran % (Auto) (0.0-0.4) % Neut % (Auto) (45-73) % Lymph % (Auto) (20-40) % [place] % (Auto) (2-11) % Eos % (Auto) (0-4) % Baso % (Auto) (0-2) % Lymph # (Auto) (1.2-4.9) X10*3/uL [place] # (Auto) (0.1-1.2) X10*3/uL Eos # (Auto) (0.0-0.4) X10*3/uL Baso # (Auto) (0.0-0.2) X10*3/uL Abs Immat Gran (auto) (0.00-0.03) X10*3/uL Absolute Neuts (auto) (2.0-8.3) x10*3/uL Absolute Nucleated RBC (0.0-0.012) X10*3/uL Nucleated RBC % (auto) (0.0-0.2) /100WBC Smear Tech's Comments Sodium (135-145) mmol/L Potassium (3.3-5.1) mmol/L Chloride (96-108) mmol/L Carbon Dioxide (22-29) mmol/L Anion Gap (12-20) BUN (9-16) mg/dL Creatinine (0.5-1.4) mg/dL Estim Creat Clear Calc Estimated GFR Random Glucose (60-115) mg/dL Lactic Acid (0.5-2.0) mmol/L Calcium (8.4-10.2) mg/dL Magnesium (1.6-2.6) mg/dL Total Bilirubin (0.0-1.0) mg/dL Direct Bilirubin (0.0-0.5) mg/dL AST (5-37) U/L ALT (0-40) U/L Alkaline Phosphatase (39-117) U/L Ammonia 22 (13-55) umol/L Troponin I High Sens (<3.5-35.0) ng/L Total Protein (6.5-8.0) g/dL Albumin (3.5-5.0) g/dL TSH 1.51 (0.32-4.0) uIU/mL Urine Color Yellow Urine Appearance Clear Urine pH 7.5 (5.0-9.0) Ur Specific Perkins 1.015 (1.005-1.025) Urine Protein Trace (Neg-Trace) mg/dL Urine Glucose (UA) Negative (Negative) mg/dL Urine Ketones Negative (Negative) mg/dL Urine Blood Negative (Negative) Urine Nitrite Negative (Negative) Ur Leukocyte Esterase Negative (Negative) Urine Opiates Screen (Not Detect) Urine Fentanyl Screen (Not Detect) Ur Barbiturates Screen (Not Detect) Ur Phencyclidine Scrn (Not Detect) Ur Amphetamines Screen (Not Detect) U Benzodiazepines Scrn (Not Detect) Urine Cocaine Screen (Not Detect) U Marijuana (THC) Screen (Not Detect) Ethyl Alcohol mg/dL Influenza Type A (PCR) (Negative) Influenza Type B (PCR) (Negative) RSV RNA Qual (PCR) (Negative) SARS-CoV-2 RNA (RT-PCR) (Negative) 08/16/22 Range/Units 12:04 WBC (4.8-10.8) X10*3/uL RBC (4.60-5.80) X10*6/uL Hgb (14.0-18.0) g/dl Hct (42.0-52.0) % MCV (80.0-98.0) fL MCH (27.0-33.0) pg MCHC (31.0-36.0) g/dl RDW (11.0-16.0) % Plt Count (160-400) X10*3/uL MPV (9.4-12.4) fL Immature Gran % (Auto) (0.0-0.4) % Neut % (Auto) (45-73) % Lymph % (Auto) (20-40) % [place] % (Auto) (2-11) % Eos % (Auto) (0-4) % Baso % (Auto) (0-2) % Lymph # (Auto) (1.2-4.9) X10*3/uL [place] # (Auto) (0.1-1.2) X10*3/uL Eos # (Auto) (0.0-0.4) X10*3/uL Baso # (Auto) (0.0-0.2) X10*3/uL Abs Immat Gran (auto) (0.00-0.03) X10*3/uL Absolute Neuts (auto) (2.0-8.3) x10*3/uL Absolute Nucleated RBC (0.0-0.012) X10*3/uL Nucleated RBC % (auto) (0.0-0.2) /100WBC Smear Tech's Comments Sodium (135-145) mmol/L Potassium (3.3-5.1) mmol/L Chloride (96-108) mmol/L Carbon Dioxide (22-29) mmol/L Anion Gap (12-20) BUN (9-16) mg/dL Creatinine (0.5-1.4) mg/dL Estim Creat Clear Calc Estimated GFR Random Glucose (60-115) mg/dL Lactic Acid (0.5-2.0) mmol/L Calcium (8.4-10.2) mg/dL Magnesium (1.6-2.6) mg/dL Total Bilirubin (0.0-1.0) mg/dL Direct Bilirubin (0.0-0.5) mg/dL AST (5-37) U/L ALT (0-40) U/L Alkaline Phosphatase (39-117) U/L Ammonia (13-55) umol/L Troponin I High Sens (<3.5-35.0) ng/L Total Protein (6.5-8.0) g/dL Albumin (3.5-5.0) g/dL TSH (0.32-4.0) uIU/mL Urine Color Urine Appearance Urine pH (5.0-9.0) Ur Specific Perkins (1.005-1.025) Urine Protein (Neg-Trace) mg/dL Urine Glucose (UA) (Negative) mg/dL Urine Ketones (Negative) mg/dL Urine Blood (Negative) Urine Nitrite (Negative) Ur Leukocyte Esterase (Negative) Urine Opiates Screen Not Detected (Not Detect) Urine Fentanyl Screen Not Detected (Not Detect) Ur Barbiturates Screen Not Detected (Not Detect) Ur Phencyclidine Scrn Not Detected (Not Detect) Ur Amphetamines Screen Not Detected (Not Detect) U Benzodiazepines Scrn Not Detected (Not Detect) Urine Cocaine Screen Not Detected (Not Detect) U Marijuana (THC) Screen Not Detected (Not Detect) Ethyl Alcohol mg/dL Influenza Type A (PCR) (Negative) Influenza Type B (PCR) (Negative) RSV RNA Qual (PCR) (Negative) SARS-CoV-2 RNA (RT-PCR) (Negative) Independent Interpretation I performed an independent interpretation of an: EKG and Plain X-Ray Interpretation: EKG with normal sinus rhythm, ventricular rate 84 beats per minute, right bundle branch block noted, pleural long QTC 503, wide QRS, no ST segment elevations or depressions CXR without focal infiltrate, trace fluid in the fissur+e on the right, Radiology Impression Discussion of test interpretation with radiology: I have reviewed the radiologist's reading. Radiologist Impression: CXR - Question groundglass opacities right upper lung and mid peripheral left lung versus superimposition of structures. No definite confluent parenchymal disease is appreciated. CT head/neck: IMPRESSION: 1. No CT evidence acute intracranial hemorrhage or edematous territorial infarction. ? 2. Left maxillary, ethmoid and sphenoid sinus disease. ? 3.No acute fracture or malalignment in the cervical spine. ? 4. Cervical spondylosis. Independent Historian Clinical information obtained from an independent historian. History obtained fr om or confirmed by: Spouse and Other (Daughter) External Record Review External record reviewed: Office record, Outpatient record and Prior outpatient labs Tests considered The following testing was considered but not selected: MRI brain considered for dizziness however not performed given clinical history of diagnosis of COVID to explain his weakness and dizziness Prescription Management I considered prescription management with: Antibiotic UA negative. no evidence of bacterial infection Chronic Conditions Patient?s care impacted by: Hypertension and Other (dementia, psoriasis) Critical Care Time Critical Care Time Critical Care Time: No Discharge Plan Discharge Clinical Impression: COVID-19, Weakness, Acute delirium Patient Disposition: Still a Patient Prescriptions: No Action amlodipine 10 mg tablet 10 mg PO DAILY Qty: 90 5RF hydrochlorothiazide 25 mg tablet 25 mg PO DAILY Qty: 90 5RF quetiapine 25 mg tablet 1 tab PO DAILY PRN (Reason: Anxiety) donepezil 10 mg tablet 1 tab PO BEDTIME sertraline 50 mg tablet 1 tab PO DAILY memantine 10 mg tablet 1 tab PO BID potassium chloride 10 mEq capsule, extended release 2 cap PO BID triamcinolone acetonide 0.1 % ointment topical BID
[2022-08-16] MEDS: 0.9 % Sodium Chloride 1,000 ML 999 ML IVCONT (11:00)
[2022-08-16 11:06] LABS: Basophils Absolute Auto 0.2 X10*3/uL (0.0-0.2); Eosinophils Percent Auto 0.4 % (0-4); Hematocrit 46.7 % (42.0-52.0); Hemoglobin 15.7 g/dl (14.0-18.0); Imm Gran Abs Auto 0.03 X10*3/uL (0.00-0.03); Imm Gran Pct Auto 0.4 % (0.0-0.4); Lymphocytes Percent Auto 13.2 % (20-40); MANUAL DIFF FLAG SCAN; Mean Corpuscular HGB Conc 33.6 g/dl (31.0-36.0); Mean Corpuscular Hemoglobin 27.8 pg (27.0-33.0); Mean Corpuscular Volume 82.7 fL (80.0-98.0); Mean Platelet Volume 9.4 fL (9.4-12.4); Monocytes Absolute Auto 1.5 X10*3/uL (0.1-1.2); Monocytes Percent Auto 20.8 % (2-11); Neutrophils Absolute Auto 4.7 x10*3/uL (2.0-8.3); Neutrophils Percent Auto 63.2 % (45-73); Platelet Count 195 X10*3/uL (160-400); Red Blood Count 5.65 X10*6/uL (4.60-5.80); Red Cell Distribution Width 13.9 % (11.0-16.0); SCAN SMEAR FLAG 1; White Blood Count 7.4 X10*3/uL (4.8-10.8)
[2022-08-16 11:14] LABS: Lactic Acid 1.3 mmol/L (0.5-2.0)
[2022-08-16 11:18] LABS: Alanine Aminotransferase 60 U/L (0-40); Albumin Level 4.1 g/dL (3.5-5.0); Alkaline Phosphatase 163 U/L (39-117); Ammonia 22 umol/L (13-55); Anion Gap 16 (12-20); Aspartate Amino Transferase 69 U/L (5-37); Bilirubin Direct 0.4 mg/dL (0.0-0.5); Blood Urea Nitrogen 14 mg/dL (9-16); Calcium 10.1 mg/dL (8.4-10.2); Carbon Dioxide 26 mmol/L (22-29); Chloride 103 mmol/L (96-108); Creatinine Clr Calc Pharmacy 39.1; Estimated Glomerular Filt Rate 49; Ethanol < 10 mg/dL; Glucose Random 88 mg/dL (60-115); Magnesium 1.5 mg/dL (1.6-2.6); Potassium 3.2 mmol/L (3.3-5.1); Sodium 142 mmol/L (135-145); Total Protein 6.7 g/dL (6.5-8.0)
[2022-08-16 11:25] LABS: Troponin-I High Sensitivity 12.8 ng/L (<3.5-35.0)
[2022-08-16 11:32] LABS: SLIDE REVIEW VERIFIED
[2022-08-16 11:39] LABS: Influenza A PCR NEGATIVE (Negative); Influenza B PCR NEGATIVE (Negative); Resp Syncy Virus RNA Qual PCR NEGATIVE (Negative); SARS COV2 PCR INHOUSE POSITIVE (Negative); TSH reflex Free T4 1.51 uIU/mL (0.32-4.0)
[2022-08-16] MEDS: Potassium Chloride Packet 20 MEQ PACKET 40 MEQ PO (11:50)
[2022-08-16 12:19] LABS: Appearance Urine Clear; Color Urine Yellow; Glucose Urine UA Negative (Negative); Leukocyte Esterase Urine Negative (Negative); Nitrite Urine Negative (Negative); PH 7.5 (5.0-9.0); Specific Gravity - Urine 1.015 (1.005-1.025); Urine Blood Negative (Negative); Urine Ketones Negative (Negative); Urine Protein Trace mg/dL (Neg-Trace)
[2022-08-16 12:32] LABS: Amphetamine Screen Urine Not Detected (Not Detect); Barbiturates, Urine Not Detected (Not Detect); Benzodiazepines Screen Urine Not Detected (Not Detect); Cannabinoid Screen Urine Not Detected (Not Detect); Cocaine Screen Urine Not Detected (Not Detect); Fentanyl, urine Not Detected (Not Detect); Opiate Screen Urine Not Detected (Not Detect); Phencyclidine Screen Urine Not Detected (Not Detect)
[2022-08-16] MEDS: QUEtiapine Fumarate 25 MG TABLET PO (12:51)
--- NOTE | 2022-08-16 15:28 | PHA.MEDREC ---
Pharmacy Consult ? Medication Reconciliation Pharmacy has completed the medication reconciliation. Patient has dementia and is covid +. Unable to communicate with patient. Spoke to and daughter over the phone and they say they gave a list to the nurse taking care of the patient. The nurse says the list is in the room but is not able to be found. Had to complete med rec based on claim history.
[2022-08-16] MEDS: Acetaminophen 325 MG TABLET 975 MG PO (15:39)
[2022-08-16] MEDS: Memantine HCl 10 MG TABLET PO (20:26)
--- NOTE | 2022-08-16 20:31 | PC.NURSE ---
Assumed care for pt. Pt alert and oriented to self. Resting at the bedside in no apparent distress. States I am confused. Will continue to monitor.
[2022-08-16] MEDS: Donepezil HCl 10 MG TABLET PO (21:30)
--- NOTE | 2022-08-16 22:23 | PC.NURSE ---
Pt asleep at the bedside. Breaths are even and unlabored with equal chest rises. HR 65. No apparent distress noted. Will continue to monitor.
--- NOTE | 2022-08-16 23:54 | MHC.EDTECH ---
PT assisted with using the urinal.Urine output 400cc . Pt given warm blankets and call saucedo placed in reach.
--- NOTE | 2022-08-17 02:30 | PC.NURSE ---
Pt sleeping at the bedside in no apparent distress. Breaths are even and unlabored with equal chest rises. Will continue to monitor.
[2022-08-17 05:07] VITALS: BP 157/81; PULSE 91; RESP 18; TEMP 36.7; O2SAT 94
--- NOTE | 2022-08-17 05:08 | MHC.EDTECH ---
pt incontinent of urine ,pt cleaned, repositioned and vitals taken
--- NOTE | 2022-08-17 05:51 | PC.NURSE ---
Pt sleeping at the bedside in no apparent distress. Will continue to monitor.
[2022-08-17] MEDS: amLODIPine Besylate 10 MG TABLET PO (08:52)
[2022-08-17] MEDS: hydroCHLOROthiazide 25 MG TABLET PO (08:52)
[2022-08-17] MEDS: Sertraline HCL 50 MG TABLET PO (08:52)
[2022-08-17] MEDS: Memantine HCl 10 MG TABLET PO ×2 (08:52→21:42)
--- NOTE | 2022-08-17 10:37 | PC.NURSE ---
ON ASSESSMENT OF PATIENT THIS MORNING, CHANGED AND REPOSITIONED DUE TO INC OF STOOL. PT NOTED TO HAVE SKIN RASH HEAD TO TOE. PT STATES IT IS A CHRONIC ISSUE.
[2022-08-17] MEDS: Magnesium Oxide 400 MG TABLET 800 MG PO (12:43)
[2022-08-17 16:00] VITALS: BP 132/69; PULSE 89; RESP 16; TEMP 36.6; O2SAT 97
--- NOTE | 2022-08-17 16:00 | MHC.EDTECH ---
this pct assumed care of patient at 1500 ,1600 vitals sign taken ,patient was incontinent of small amount of stool ,bed bath given linen change ,warm blanket given ,patient watching television ,call saucedo within reach .
--- NOTE | 2022-08-17 16:37 | MHC.CM.PN ---
PATIENT OPENED EYES TO T/W FINISHER ACCORDION'S ATTEMPTS TO SPEAK BUT DID NOT ENGAGE IN CONVERSATION. P.T. INDICATES THAT PATIENT IS TOO WEAK TO PARTICIPATE IN EVALUATION. T/W TO CONTACT FAMILY AT NUMBER IN EXPANSE AND UPDATE WITH NOTE.
--- NOTE | 2022-08-17 16:44 | MHC.CM.ED ---
CALL TO MAGY @[phone] PATIENT LIVES WITH MAGY, WHO ALSO HAS COVID-19 PATIENT USES A WALKER BUT IS QUITE UNSTEADY AT BASELINE. SHE ALSO REPORTS THAT PATIENT DOES NOT ALWAYS UNDERSTAND DIRECTIONS. COVID VACCINATED WITH NO BOOSTER HCP ON FILE AND VERIFIED. FEELS SHE IS UNABLE TO CARE FOR HIM AT THIS TIME BUT DOES UNDERSTAND BARRIERS TO DC. HE DOES HAVE RN AND MD VISITS THROUGH [facility] CASE MANAGEMENT TO FOLLOW
--- NOTE | 2022-08-17 18:01 | MHC.EDTECH ---
1800 ROUNDING DONE PATIENT ON HIS LEFT SIDE ,AND DRY ,PATIENT SLEEPING .
--- NOTE | 2022-08-17 18:30 | MHC.EDTECH ---
PATIENT WAS GIVEN DINNER ,PATIENT ATE 100 % OF TURKEY ,BAKED POTATO AND GREEN BEANS ,DRANK 240 ML CRANBERRY JUICE ,TRAY PICKED UP ,PATIENT VOID 300 ML ,PATIENT WATCHING TELEVISION .,CALL ALLEN WITHIN REACH .
--- NOTE | 2022-08-17 18:39 | MHC.EDTECH ---
this pct fed patient supper patient ate 100 % of turkey ,baked potato and green beans ,for dessert ate chocolate pudding ,apple crisp and peach ,for drinks had 2 micky bettie ,1 small milk and 1 cranberry juice ,after supper patient said he needed to void ,patient was assisted with the urinal voided 400 ml ,at the same time was incontinent of medium amount of soft stool ,care given and bedding change ,warm blankets given ,call saucedo within reach patient listening to television .
[2022-08-17] MEDS: Donepezil HCl 10 MG TABLET PO (21:42)
--- NOTE | 2022-08-17 22:27 | PC.NURSE ---
late entry- pt incontinent of stool. this rn and supervisor powdered sugar changed over linen and hospital gown. pt boosted up in bed and repositioned to back, HOB elevated. pt medicated according to sep. pt provided with urinal placed at bedside, pt oriented to surroundings. pt expresses no new needs at this time
[2022-08-18 00:28] VITALS: BP 136/70; PULSE 82; RESP 16; TEMP 36.8; O2SAT 96
[2022-08-18 08:08] VITALS: BP 142/75; PULSE 76; RESP 14; TEMP 36.7; O2SAT 95
--- NOTE | 2022-08-18 10:02 | MHC.CM.ED ---
Addendum entered by Caron Banuelos 08/18/22 15:09: [place] [facility] [place] Original Note: Patient remains in ER. Physical therapy eval completed. Short term rehab is recommended. Patient tested positive for Covid on 08/16. Patient has Blue Cross Medicare for insurance. Referral broadcasted in [facility]. Anticipate patient will be difficult to place due to Covid. Continue to monitor for d/c needs.
[2022-08-18] MEDS: amLODIPine Besylate 10 MG TABLET PO (10:28)
[2022-08-18] MEDS: Sertraline HCL 50 MG TABLET PO (10:28)
[2022-08-18] MEDS: Memantine HCl 10 MG TABLET PO ×2 (10:28→21:50)
[2022-08-18] MEDS: hydroCHLOROthiazide 25 MG TABLET PO (10:28)
[2022-08-18 16:19] VITALS: BP 129/80; PULSE 73; RESP 15; O2SAT 95
[2022-08-18] MEDS: Donepezil HCl 10 MG TABLET PO (21:50)
[2022-08-19] VITALS: BP 154/89; PULSE 70; RESP 16; TEMP 36.3; O2SAT 97
--- NOTE | 2022-08-19 | MHC.EDTECH ---
THIS PCT ASSUMED CARE OF PATIENT AT 2300 ,0000 VITALS SIGN TAKEN ,PATIENT AWAKE ,PATIENT REPOSITION ON LEFT SIDE AND WAS BOOSTED UP IN BED ,PATIENT IS CLEAN AND DRY , HAS A [place] CATHETER ON ,TELLE SITTER CAMERA ON ,CALL ALLEN WITHIN REACH .
--- NOTE | 2022-08-19 00:16 | PC.NURSE ---
This RN took over assignment, pt is sleeping- bed alarm on, bed in low position, camera in place, [place] cath on.
--- NOTE | 2022-08-19 02:09 | MHC.EDTECH ---
alarm went off on bed ,check on patient he pulled off the condom catheter ,said he needed to use the bathroom was assisted to use the urinal void 300 ml ,i offer patient a micky bettie ,drank 60 ml reposition and boosted up in bed.
--- NOTE | 2022-08-19 04:10 | MHC.EDTECH ---
0400 rounding done ,patient sleeping ,bed alarm on ,telle sitter on .
[2022-08-19 06:00] VITALS: BP 132/76; PULSE 68; RESP 16; TEMP 36.7; O2SAT 98
--- NOTE | 2022-08-19 06:00 | MHC.EDTECH ---
0600 ROUNDING AND VITALS SIGN DONE ,PATIENT IS DRY ,WARM BLANKET GIVEN ,PATIENT POSITION ONTO SIDE AND BOOSTED UP IN BED ,TELLE SITTER CAMREA IN PLACE .
[2022-08-19] MEDS: amLODIPine Besylate 10 MG TABLET PO (08:45)
[2022-08-19] MEDS: Sertraline HCL 50 MG TABLET PO (08:45)
[2022-08-19] MEDS: hydroCHLOROthiazide 25 MG TABLET PO (08:46)
[2022-08-19] MEDS: Memantine HCl 10 MG TABLET PO ×2 (08:46→20:37)
--- NOTE | 2022-08-19 09:30 | MHC.EDTECH ---
Gave patient a bed bath, changed linen and fed patient his breakfast. Liliam العراقي
--- NOTE | 2022-08-19 10:00 | PC.NURSE ---
pt assisted with breakfast by yanira, a.m. care done, pt denies pain, vss, pt resting quietly, COVID precautions in place. safety precautions in place. meds given as documented
--- NOTE | 2022-08-19 12:30 | PC.NURSE ---
INCONTINENT CARE AND COMPLETE BED CHANGE DONE. WARM BLANKETS GIVEN.
--- NOTE | 2022-08-19 17:05 | MHC.EDTECH ---
Assisted patient on and off cammode. Changed patients bedding and gown. Liliam العراقي
[2022-08-19 17:54] VITALS: BP 132/61; PULSE 55; RESP 18; O2SAT 95
--- NOTE | 2022-08-19 20:16 | MHC.CM.ED ---
Attempted to meet with patient to discuss plan of care, but patient was sleeping soundly with blankets over his head. Pt will be covid recovered on 08/26. nadia Blair and Reina Sagastume may consider once covid recovered. CM following for discharge planning.
[2022-08-19] MEDS: Donepezil HCl 10 MG TABLET PO (20:37)
--- NOTE | 2022-08-19 20:47 | PC.NURSE ---
Addendum entered by Lisa Goldberg RN 08/20/22 06:53: Report given to BATSHEVA Brar Original Note: report received from BATSHEVA Tee pt appear resting comfortably in bed no signs of acute distress notice breathing equally unlabored isolation precaution maintained
[2022-08-20 05:59] VITALS: BP 129/74; PULSE 70; RESP 19; TEMP 36.6; O2SAT 94
[2022-08-20 08:50] VITALS: BP 114/62; PULSE 70; RESP 16; TEMP 36.6; O2SAT 95
[2022-08-20] MEDS: Sertraline HCL 50 MG TABLET PO (09:51)
[2022-08-20] MEDS: Memantine HCl 10 MG TABLET PO ×2 (09:51→20:08)
[2022-08-20] MEDS: amLODIPine Besylate 10 MG TABLET PO (09:51)
[2022-08-20] MEDS: hydroCHLOROthiazide 25 MG TABLET PO (09:51)
--- NOTE | 2022-08-20 11:20 | MHC.CM.ED ---
Patient remains in ER overflow. No bed offers yet. Will need repeat Covid test on 08/21. If negative, Josh Woods and Lisa Childers will review patient. If positive, patient will be considered Covid recovered on 08/26. Continue to monitor for d/c needs.
[2022-08-20 18:00] VITALS: BP 158/82; PULSE 75; RESP 18; TEMP 36.6; O2SAT 97
--- NOTE | 2022-08-20 18:37 | PC.NURSE ---
Patient resting throughout shift, ambulating to commode with one assist. Medications given per MAR.
[2022-08-20] MEDS: QUEtiapine Fumarate 25 MG TABLET PO (20:08)
[2022-08-20] MEDS: Donepezil HCl 10 MG TABLET PO (20:08)
[2022-08-20 21:52] VITALS: BP 122/74; PULSE 70; RESP 18; TEMP 36.6; O2SAT 98
[2022-08-21] VITALS: BP 136/78; PULSE 84; RESP 20; TEMP 36; O2SAT 94
[2022-08-21 06:00] VITALS: BP 149/76; PULSE 74; RESP 16; TEMP 36.1; O2SAT 96
[2022-08-21 09:12] LABS: COVID-19 Test Positive (Negative); IDNOW Serial# 9DB6401D
--- NOTE | 2022-08-21 09:28 | MHC.CM.ED ---
Patient remains in ER overflow. Repeat Covid swab is negative. Due to Covid status and [employer] medicare insurance, anticipate placement will be difficult to find until patient is Covid recovered on 08/26. Continue to monitor for d/c needs.
[2022-08-21] MEDS: hydroCHLOROthiazide 25 MG TABLET PO (09:57)
[2022-08-21] MEDS: Sertraline HCL 50 MG TABLET PO (09:57)
[2022-08-21] MEDS: Memantine HCl 10 MG TABLET PO ×2 (09:57→21:25)
[2022-08-21] MEDS: amLODIPine Besylate 10 MG TABLET PO (09:57)
--- NOTE | 2022-08-21 11:07 | MHC.CM.ED ---
Patient remains in ER overflow. Repeat Covid swab is positive. Due to Covid status and [employer] medicare insurance, anticipate placement will be difficult to find until patient is Covid recovered on 08/26. Continue to monitor for d/c needs.
[2022-08-21 16:23] VITALS: BP 138/76; PULSE 79; TEMP 36.3; O2SAT 95
[2022-08-21 19:37] VITALS: BP 140/73; PULSE 66; RESP 18; TEMP 36.9; O2SAT 95
--- NOTE | 2022-08-21 21:24 | MHC.EDTECH ---
pt was assisted with the urinal to void
[2022-08-21] MEDS: Donepezil HCl 10 MG TABLET PO (21:25)
--- NOTE | 2022-08-21 21:55 | PC.NURSE ---
Assumed care of patient approx. 1900. Pt. alert, confused, arousable, follows some commands/inconsistent. No behavioral or verbal indicator of pain at this time. +pulses, warm, -edema noted. No IV access; not necessary. LS C/D bilaterally, remains on RA. +BS*4, soft, NT/ND. Voids with assist/incontinent at times. Strong, odorous urine noted; yellow color. Full body rash: peeling, flaking, dry, intact, erythemic. Skin and hygiene care provided. Bed alarm in place, camera on. Presently resting.
--- NOTE | 2022-08-21 23:47 | MHC.EDTECH ---
rounds done on pt to make sure he was dry and positioned
[2022-08-22 02:50] VITALS: BP 132/85; PULSE 79; RESP 18; TEMP 37; O2SAT 96
--- NOTE | 2022-08-22 03:10 | MHC.EDTECH ---
rounded on pt to check if he is incontinent he was not he was dry
[2022-08-22 05:28] VITALS: BP 158/80; PULSE 68; RESP 18; TEMP 36.3; O2SAT 95
--- NOTE | 2022-08-22 05:31 | MHC.EDTECH ---
pt is resting quietly, vitals were taken and he used the urinal and back to sleep he went
--- NOTE | 2022-08-22 06:00 | PC.NURSE ---
pt alert and oriented x2 pt found soiled in bed, bed sheet malodorous with ring size of old urine, no incontinent pad under the pt. This RN and photonic laboratory technician did a complete bed change, bed wipe and cleaned. sheet changed, gown changed. total care provided. pt repositioned in the bed
[2022-08-22] MEDS: amLODIPine Besylate 10 MG TABLET PO (09:10)
[2022-08-22] MEDS: Memantine HCl 10 MG TABLET PO ×2 (09:10→20:10)
[2022-08-22] MEDS: Sertraline HCL 50 MG TABLET PO (09:10)
[2022-08-22] MEDS: hydroCHLOROthiazide 25 MG TABLET PO (09:10)
[2022-08-22 09:13] VITALS: BP 135/71; PULSE 74; RESP 18; TEMP 36.2; O2SAT 94
--- NOTE | 2022-08-22 09:44 | PC.NURSE ---
patient alert, oriented to self. baseline mentation due to dementia. following commands. cooperative and pleasant with staff. bed in lowest locked position and camera in place for safety.
[2022-08-22 13:43] VITALS: BP 117/64; PULSE 85; RESP 12; O2SAT 98
[2022-08-22 15:29] VITALS: BP 130/76; PULSE 74; RESP 16; TEMP 36.6; O2SAT 97
--- NOTE | 2022-08-22 15:30 | MHC.EDTECH ---
this pct assumed care of pt at 1500 ,patient was incontinent of urine ,bed bath given ,lotion apply all over body ,bedding change ,warm blanket given and vitals sign taken .
--- NOTE | 2022-08-22 19:37 | PC.NURSE ---
assumed care of patient at 1900 - patient previously cleaned up and linens changed just prior to shift change. patient is resting comfortably on stretcher, no s/s of any apparent distress. will continue to monitor
[2022-08-22] MEDS: Donepezil HCl 10 MG TABLET PO (20:10)
--- NOTE | 2022-08-22 20:53 | MHC.CM.ED ---
Pt sleeping. No bed offers until considered Covid recovered on 08/26.
[2022-08-22 22:46] VITALS: BP 143/77; PULSE 70; TEMP 36.4; O2SAT 98
--- NOTE | 2022-08-23 04:20 | PC.NURSE ---
patient assisted with use of urinal. patient cleaned up and linens changed. no current complaints or apparent distress. will continue to monitor
[2022-08-23 08:11] VITALS: BP 139/70; PULSE 62; RESP 20; TEMP 36.8; O2SAT 97
[2022-08-23] MEDS: Sertraline HCL 50 MG TABLET PO (09:36)
[2022-08-23] MEDS: Memantine HCl 10 MG TABLET PO ×2 (09:37→21:44)
[2022-08-23] MEDS: hydroCHLOROthiazide 25 MG TABLET PO (09:37)
[2022-08-23] MEDS: amLODIPine Besylate 10 MG TABLET PO (09:37)
--- NOTE | 2022-08-23 12:17 | MHC.CM.PN ---
PT IN NEED OF STR PLACEMENT REFERRAL BROADCASTED AT THIS TIME THERE ARE NO BED OFFERS, HOWEVER THERE ARE SNFS FOLLOWING AND WILLING TO REVIEW ONCE PT IS COVID RECOVERED (08/26/22)
[2022-08-23 15:49] VITALS: BP 125/74; PULSE 77; O2SAT 97
[2022-08-23] MEDS: Donepezil HCl 10 MG TABLET PO (21:44)
[2022-08-23 21:45] VITALS: BP 132/69; PULSE 68; RESP 18; TEMP 36.8; O2SAT 95
[2022-08-24 06:16] VITALS: BP 127/72; PULSE 67; RESP 14; TEMP 36.3; O2SAT 96
--- NOTE | 2022-08-24 06:25 | MHC.EDTECH ---
PT 1X assisted with urinal. Pt bed linen soiled with urine. Bed linen changed and bed pad changed. Pt gown and blanket changed. Pt call saucedo placed in reach. Pt urinal emptied at 200cc
--- NOTE | 2022-08-24 08:12 | MHC.CM.ED ---
SNF referral updated and rebroadcasted. Pt COVID + on 08/16 and 08/21. Will be recovered on 08/26. No offers at this time. ED CM to follow
[2022-08-24] MEDS: Sertraline HCL 50 MG TABLET PO (08:53)
[2022-08-24] MEDS: hydroCHLOROthiazide 25 MG TABLET PO (08:53)
[2022-08-24] MEDS: Memantine HCl 10 MG TABLET PO ×2 (08:53→20:19)
[2022-08-24] MEDS: amLODIPine Besylate 10 MG TABLET PO (08:53)
[2022-08-24 13:53] LABS: Anion Gap 13 (12-20); Blood Urea Nitrogen 22 mg/dL (9-16); Calcium 9.7 mg/dL (8.4-10.2); Carbon Dioxide 26 mmol/L (22-29); Chloride 99 mmol/L (96-108); Creatinine Clr Calc Pharmacy 52.6; Estimated Glomerular Filt Rate > 60; Glucose Random 114 mg/dL (60-115); Magnesium 1.6 mg/dL (1.6-2.6); Potassium 3.3 mmol/L (3.3-5.1); Sodium 135 mmol/L (135-145)
--- NOTE | 2022-08-24 14:31 | MHC.EDTECH ---
bed change and washed patient, after using the urinal.
[2022-08-24 15:54] VITALS: BP 109/59; PULSE 74; RESP 16; TEMP 36.9; O2SAT 96
--- NOTE | 2022-08-24 15:54 | MHC.EDTECH ---
this pct assumed care of pt at 1500 ,pt up to bedside commode ,void lg amount of urine,care given lotion apply ,back to bed,warm blanket given ,call saucedo within reach ,vitals sign taken ,pt had sips of water ,
[2022-08-24 19:32] VITALS: BP 124/70; PULSE 74; RESP 16; TEMP 36.2; O2SAT 96
--- NOTE | 2022-08-24 19:33 | MHC.EDTECH ---
this pct fed patient turkey dinner ate 100 % ,drank 720 ml fluids ,after dinner ,i gave pt another complete sponge bath ,special cream apply to entire body ,tooth brush ,hair come ,shave patient ,change sock and Jonathan ,also bedding change ,vitals sign taken warm blanket given ,alarm on bed and call saucedo within reach ,patient said he will sleep good tonight and was very grateful for the care given .
[2022-08-24] MEDS: Donepezil HCl 10 MG TABLET PO (20:20)
--- NOTE | 2022-08-24 22:24 | MHC.EDTECH ---
PATIENT UP TO USE URINAL ,BACK TO SLEEP .
--- NOTE | 2022-08-25 09:14 | MHC.CM.ED ---
Patient remains in ER. Patient tested positive for Covid on 08/16. Physical therapy has been asked to re-eval patient for discharge needs. Clinical updates sent to all facilities within 20 miles of patient's home contracted with patients insurance: Lidya Carey, Vendor, [facility], [facility], [facility], [facility], [facility], [facility], [facility], [facility] and [facility]. Continue to monitor for d/c needs.
[2022-08-25] MEDS: amLODIPine Besylate 10 MG TABLET PO (10:10)
[2022-08-25] MEDS: Sertraline HCL 50 MG TABLET PO (10:10)
[2022-08-25] MEDS: Memantine HCl 10 MG TABLET PO ×2 (10:10→19:41)
[2022-08-25] MEDS: hydroCHLOROthiazide 25 MG TABLET PO (10:10)
[2022-08-25 10:33] VITALS: BP 121/75; PULSE 83; RESP 18; TEMP 36.8; O2SAT 98
--- NOTE | 2022-08-25 12:01 | PC.NURSE ---
assisted pt to bedside commode. pt a 2x assist. pt hard of hearing making it difficult to follow direction. high fall risk. otherwise in NAD, resting comfortably. skin red, raw - reports this is normal for him d/t psoriasis. pt has tendencies to lean to the left - repositioned with pillows but pt reports he is comfortable.
[2022-08-25 18:39] VITALS: BP 123/62; PULSE 71; RESP 16; TEMP 37.1; O2SAT 96
[2022-08-25] MEDS: Donepezil HCl 10 MG TABLET PO (19:41)
--- NOTE | 2022-08-25 19:54 | MHC.EDTECH ---
Assisted patient with dinner, I set up his sandwich and guided him where it was as well as his chips and water, he was able to pick up and delivery driver the items and feed himself well. Patient ate about 75% of his food, and drank 1000 oz of water, also drank two cranberry juices. SG
[2022-08-26 05:50] VITALS: BP 118/60; PULSE 61; RESP 14; TEMP 36.3; O2SAT 96
[2022-08-26] MEDS: Memantine HCl 10 MG TABLET PO ×2 (09:17→21:26)
[2022-08-26] MEDS: hydroCHLOROthiazide 25 MG TABLET PO (09:17)
[2022-08-26] MEDS: Sertraline HCL 50 MG TABLET PO (09:17)
[2022-08-26] MEDS: amLODIPine Besylate 10 MG TABLET PO (09:17)
--- NOTE | 2022-08-26 10:08 | MHC.CM.ED ---
Addendum entered by Caron Banuelos 08/26/22 13:34: [facility] is able to offer a bed and is in the process of obtaining insurance auth. Patient's , Cristina, made aware via telephone. Original Note: Patient remains in ER overflow. Originally positive for Covid on 08/16. Now considered Covid recovered. Physical therapy is recommending short term rehab with transition to LTC. Patient's /HCP, Cristina was admitted at [facility] with Covid on 08/17. She was discharged home. T/W spoke with Cristina via telephone at [phone]. Cristina doesn't feel she can safely care for patient at home because he's requiring more care than she can provide. Patient has Blue Cross Medicare. Does not have [facility]. Patient does not have a halfway care insurance policy. T/W explained CM will continue to try to find a STR bed, however, if insurance denies STR, patient would either need to return home or find private pay placement, which can be anywhere from $10,000-$14,000. Cristina aware. T/W explained CM will contact her when placement is found. Continue to monitor for d/c needs.
[2022-08-26 10:17] VITALS: BP 135/68; PULSE 64; TEMP 36.4; O2SAT 94
--- NOTE | 2022-08-26 14:13 | PC.NURSE ---
pt being assisted to eat. states he is feeling better today. able to stand with assistance to urinate in urinal. pt is covid recovered today and the plan for STR is still in place. awaiting placement.
--- NOTE | 2022-08-26 18:53 | PC.NURSE ---
pt ate 50% of dinner and had two drinks
--- NOTE | 2022-08-26 19:30 | PC.NURSE ---
Assumed care of pt. at 1900. Pt. sleeping at this time, respirations even and unlabored. No distress noted. Camera is at bedside. Will continue to monitor.
[2022-08-26] MEDS: Donepezil HCl 10 MG TABLET PO (21:26)
--- NOTE | 2022-08-26 21:30 | PC.NURSE ---
Woke pt. up for his nighttime medications and medicated per SEP. Pt. reports no pain at this time and has no other complaints. Will continue to monitor.
[2022-08-26 22:23] VITALS: BP 131/71; PULSE 74; RESP 18; TEMP 37; O2SAT 96
--- NOTE | 2022-08-27 00:56 | PC.NURSE ---
Pt. up requesting help with urination. Pt. assisted with the urinal and pt. back to bed.
--- NOTE | 2022-08-27 02:41 | PC.NURSE ---
Pt. repositioning himself in bed. No distress noted. Will continue to monitor.
[2022-08-27 05:21] VITALS: BP 124/76; PULSE 68; RESP 16; TEMP 36.8; O2SAT 94
--- NOTE | 2022-08-27 05:22 | MHC.EDTECH ---
urinal emptied pt repositioned
[2022-08-27] MEDS: amLODIPine Besylate 10 MG TABLET PO (09:50)
[2022-08-27] MEDS: hydroCHLOROthiazide 25 MG TABLET PO (09:50)
[2022-08-27] MEDS: Memantine HCl 10 MG TABLET PO (09:50)
[2022-08-27] MEDS: Sertraline HCL 50 MG TABLET PO (09:50)
--- NOTE | 2022-08-27 10:33 | MHC.CM.ED ---
Patient is currently in ER overflow. [facility] has obtained insurance auth. Patient can leave at 1pm. Blas RETANA booked. Med nec with chart. Patient, Crista Evans RN and Arianne BRUNER aware. Continue to monitor for d/c needs.
--- NOTE | 2022-08-27 13:31 | PC.NURSE ---
REPORT CALLED TO MARIPOSA AT [facility] [phone]
== END 2022-08-27 13:35 | disposition skilled nursing facility (03) ==
PROVIDERS: Physician Assistant; Physician Assistant Medical; Emergency Provider Emergency Medicine; PCP Internal Medicine
DX: U07.1 COVID-19 (principal); R50.9 Fever, unspecified; R53.1 Weakness; F05 Delirium due to known physiological condition; I10 Essential (primary) hypertension; G30.9 Alzheimer's disease, unspecified; F02.80 Dementia in other diseases classified elsewhere, unspecified severity, without behavioral disturbance, psychotic disturbance, mood disturbance, and anxiety; Z91.81 History of falling; Z85.46 Personal history of malignant neoplasm of prostate; Z86.73 Personal history of transient ischemic attack (TIA), and cerebral infarction without residual deficits; Z87.891 Personal history of nicotine dependence; Z79.899 Other long term (current) drug therapy
CPT/HCPCS: 0241U; 36415; 70450; 71045; 72125; 80048; 80076; 80307; 81003; 82077; 82140; 83605; 83735; 84443; 84484; 85025; 87040; 87635; 93005; 96360; 97162; 97530; 99285

== ENCOUNTER 2023-03-16 18:36 | Emergency (ER) | payer MEDICARE, SELFPAY ==
--- NOTE | ~2023-03-16 | XR_ITS ---
EXAMINATION: XR CHEST CLINICAL INFORMATION: Cough. COMPARISON: Chest radiograph 08/16/2022. TECHNIQUE: AP view of the chest was obtained. FINDINGS: Stable appearance of the cardiomediastinal silhouette. Increase diffuse interstitial prominence. Question more focal airspace opacities in the retrocardiac region/left lower lobe. Blunting of the left costophrenic angle, similar to prior favored to represent prominent epicardial fat pad. No significant pleural effusion or pneumothorax. No acute osseous abnormalities. Chronic right mid clavicular fracture. XR/XR chest 1V IMPRESSION: Findings are suggestive of an atypical/viral infection with equivocal early infiltrates in the left lower lobe. Recommend follow-up after treatment to ensure resolution.
[2023-03-16 18:53] VITALS: BP 115/71; PULSE 75; PULSE 88; RESP 28; TEMP 36.8; O2SAT 94; O2SAT 95; BMI 21.9
--- NOTE | 2023-03-16 19:08 | ED.GENADULT ---
HPI - General Adult General Chief complaint: General Medical Stated complaint: FEVER COUGH Time Seen by Provider: 03/16/23 19:02 Source: patient Mode of arrival: ambulatory Limitations: no limitations History of Present Illness HPI narrative: Patient with history of hypertension, dementia came from long-term for fever of 102.3 with cough patient denies any complaints no vomiting no diarrhea no abdominal had COVID test done today which was negative Related Data Home Medications Medication Instructions Recorded Confirmed donepezil 10 mg tablet 1 tab PO BEDTIME 09/25/20 03/16/23 memantine 10 mg tablet 1 tab PO BID 09/25/20 03/16/23 escitalopram oxalate 20 mg tablet 20 mg PO DAILY 03/16/23 03/16/23 magnesium oxide 400 mg PO BEDTIME 03/16/23 03/16/23 potassium chloride 20 mEq 20 meq PO DAILY 03/16/23 03/16/23 tablet,extended release(part/cryst) potassium chloride 20 mEq 40 meq PO DAILY 03/16/23 03/16/23 tablet,extended release(part/cryst) triamcinolone acetonide 0.1 % 1 appl topical BID 03/16/23 03/16/23 topical cream Previous Rx's Medication Instructions Recorded amlodipine 10 mg tablet 10 mg PO DAILY #90 tabs 05/20/21 azithromycin 250 mg tablet 250 mg PO DAILY 4 days #4 tabs 03/16/23 (Zithromax Z-Champ) cefuroxime axetil 500 mg tablet 500 mg PO BID 10 days #20 tabs 03/16/23 Allergies Allergy/AdvReac Type Severity Reaction Status Date / Time methotrexate [METHOTREXATE] Allergy Unknown SEIZURE, Verified 05/09/21 09:10 SEIZURES Review of Systems Review of Systems: Yes Unobtainable due to mental status PMFSH Past Medical History Medical History Dementia Eczema Frequent falls HTN (hypertension) Lymphocytosis Prostate cancer Psoriasis Seizure TIA (transient ischemic attack) Surgical History History of prostatectomy History of surgery Family History Family History Father Myocardial infarction Mother Acute CVA (cerebrovascular accident) Breast cancer Sister Breast cancer Family/Other Leukemia Social History Social History Household Members: Family Housing: House Do you presently have visiting nurse or other home services: Yes Alcohol intake: current Alcohol intake frequency: holidays/special occasions only Alcohol type: wine Patient Tobacco Use Status: Former Tobacco user Tobacco use type: Cigarette Second Hand Smoke Exposure: No Advance Directives: Yes Advance Directives on File: Yes Advance Directives Date on File: 04/23/21 service: Yes Current occupational status: retired and disabled Physical Exam ED Vital Signs: Vital Signs - 24 hr 03/16/23 18:53 Temperature 98.2 F Pulse Rate 75 Respiratory Rate 28 H Blood Pressure 115/71 Pulse Oximetry 95 Oxygen Delivery Method Room Air BMI result Body Mass Index 21.9 Appearance: Alert. Oriented X2. No acute distress. Eyes: PERRLA, No Nystagmus ENT: Pharynx normal. Oral Mucosa moist Neck: Normal inspection. Neck supple. CVS: Normal heart rate and rhythm. Pulses normal. Respiratory: No respiratory distress. Equal air entry bilateral, no wheezing/rales/rhonchi bilateral conducted sounds crackles at bases left more than right Abdomen: Soft and nontender. Bowel sounds are present, no mass palpable, no CVA tenderness Skin: Skin warm and dry. Normal skin color. Normal skin turgor. Extremities: No lower extremity edema. No calf tenderness Neuro: Oriented X 2. Moving all 4 extremities Medications Administered Discontinued Medications Generic Name Dose Route Start Last Admin Trade Name Freq PRN Reason Stop Dose Admin Azithromycin 500 mg 03/16/23 20:42 03/16/23 21:31 Azithromycin 500 Mg Tablet PO 03/16/23 20:43 500 mg ONCE ONE Administration Cefuroxime Axetil 500 mg 03/16/23 20:42 03/16/23 21:31 Cefuroxime Axetil 500 Mg Tablet PO 03/16/23 20:43 500 mg ONCE ONE Administration Medical Decision Making Medical Decision Making [facility] Narrative: Patient under dementia with fever noticed to have small pneumonia in the left lower lobe patient vitals are stable otherwise discharge patient back to long-term on Augmentin and Zithromax Differential Diagnosis Differential Diagnoses: The differential diagnosis associated with the presentation includes Pneumonia/CHF/COVID Lab Data [facility] Lab Attestation statement: I reviewed the patient's lab results. 03/16/23 19:12 03/16/23 19:12 Labs: Lab Results 03/16/23 03/16/23 03/16/23 Range/Units 19:12 19:12 19:12 WBC 10.2 (4.8-10.8) X10*3/uL RBC 5.23 (4.60-5.80) X10*6/uL Hgb 15.5 (14.0-18.0) g/dl Hct 44.8 (42.0-52.0) % MCV 85.7 (80.0-98.0) fL MCH 29.6 (27.0-33.0) pg MCHC 34.6 (31.0-36.0) g/dl RDW 14.7 (11.0-16.0) % Plt Count 231 (160-400) X10*3/uL MPV 9.8 (9.4-12.4) fL Immature Gran % (Auto) Cancelled Neut % (Auto) Cancelled Lymph % (Auto) Cancelled [place] % (Auto) Cancelled Eos % (Auto) Cancelled Baso % (Auto) Cancelled Lymph # (Auto) Cancelled [place] # (Auto) Cancelled Eos # (Auto) Cancelled Baso # (Auto) Cancelled Abs Immat Gran (auto) Cancelled Absolute Neuts (auto) Cancelled Absolute Nucleated RBC 0.000 (0.0-0.012) X10*3/uL Nucleated RBC % (auto) 0.0 (0.0-0.2) /100WBC Neutrophils % (Manual) 57 (45-73) % Lymphocytes % (Manual) 14 L (20-40) % Atypical Lymphs % (Man) 1 (0-6) % Monocytes % (Manual) 15 H (2-11) % Eosinophils % (Manual) 10 H (0-4) % Basophils % (Manual) 3 H (0-2) % Abs Neuts (Manual) 5.8 (2.0-8.3) X10*3/uL Lymphocytes # (Manual) 1.4 (1.2-4.9) X10*3/uL Atyp Lymphs # (Manual) 0.1 x10*3/uL Monocytes # (Manual) 1.5 H (0.1-1.2) X10*3/uL Eosinophils # (Manual) 1.0 H (0.0-0.4) X10*3/uL Basophils # (Manual) 0.3 H (0.0-0.2) X10*3/uL Platelet Estimate NORMAL (NORMAL) Plt Morphology Comment NORMAL RBC Morphology NORMAL Sodium 140 (135-145) mmol/L Potassium 4.1 D (3.3-5.1) mmol/L Chloride 111 H (96-108) mmol/L Carbon Dioxide 22 (22-29) mmol/L Anion Gap 11 L (12-20) BUN 11 (9-16) mg/dL Creatinine 0.95 (0.5-1.4) mg/dL Estim Creat Clear Calc 48.6 Estimated GFR > 60 Random Glucose 101 (60-115) mg/dL Lactic Acid (0.5-2.0) mmol/L Calcium 10.0 (8.4-10.2) mg/dL COVID-19 (YASEMIN) (Negative) COVID-19 Clin Com Influenza Type A (SHELBIE) Negative (Negative) Influenza Type B (SHELBIE) Negative (Negative) Influenza A & B Note See Note 03/16/23 03/16/23 Range/Units 19:12 20:14 WBC (4.8-10.8) X10*3/uL RBC (4.60-5.80) X10*6/uL Hgb (14.0-18.0) g/dl Hct (42.0-52.0) % MCV (80.0-98.0) fL MCH (27.0-33.0) pg MCHC (31.0-36.0) g/dl RDW (11.0-16.0) % Plt Count (160-400) X10*3/uL MPV (9.4-12.4) fL Immature Gran % (Auto) Neut % (Auto) Lymph % (Auto) [place] % (Auto) Eos % (Auto) Baso % (Auto) Lymph # (Auto) [place] # (Auto) Eos # (Auto) Baso # (Auto) Abs Immat Gran (auto) Absolute Neuts (auto) Absolute Nucleated RBC (0.0-0.012) X10*3/uL Nucleated RBC % (auto) (0.0-0.2) /100WBC Neutrophils % (Manual) (45-73) % Lymphocytes % (Manual) (20-40) % Atypical Lymphs % (Man) (0-6) % Monocytes % (Manual) (2-11) % Eosinophils % (Manual) (0-4) % Basophils % (Manual) (0-2) % Abs Neuts (Manual) (2.0-8.3) X10*3/uL Lymphocytes # (Manual) (1.2-4.9) X10*3/uL Atyp Lymphs # (Manual) x10*3/uL Monocytes # (Manual) (0.1-1.2) X10*3/uL Eosinophils # (Manual) (0.0-0.4) X10*3/uL Basophils # (Manual) (0.0-0.2) X10*3/uL Platelet Estimate (NORMAL) Plt Morphology Comment RBC Morphology Sodium (135-145) mmol/L Potassium (3.3-5.1) mmol/L Chloride (96-108) mmol/L Carbon Dioxide (22-29) mmol/L Anion Gap (12-20) BUN (9-16) mg/dL Creatinine (0.5-1.4) mg/dL Estim Creat Clear Calc Estimated GFR Random Glucose (60-115) mg/dL Lactic Acid 1.2 (0.5-2.0) mmol/L Calcium (8.4-10.2) mg/dL COVID-19 (YASEMIN) Negative (Negative) COVID-19 Clin Com See Note Influenza Type A (SHELBIE) (Negative) Influenza Type B (SHELBIE) (Negative) Influenza A & B Note Discharge Plan Discharge Clinical Impression: Left lower lobe pneumonia Patient Disposition: Xfer SNF Transfer Details: Possible left lower lobe pneumonia in x-ray Antibiotics as prescribed Instructions: Pneumonia (ED) Additional Instructions: Take antibiotic as prescribed Tylenol/Motrin for fever Follow with PCP or report to ED if not better Prescriptions: New cefuroxime axetil 500 mg tablet 500 mg PO BID 10 Days Qty: 20 0RF azithromycin [Zithromax Z-Champ] 250 mg tablet 250 mg PO DAILY 4 Days Qty: 4 0RF Rx Instructions: start on day 2 of therapy No Action amlodipine 10 mg tablet 10 mg PO DAILY Qty: 90 5RF donepezil 10 mg tablet 1 tab PO BEDTIME memantine 10 mg tablet 1 tab PO BID triamcinolone acetonide 0.1 % Cream 1 appl TOPICAL BID escitalopram oxalate 20 mg Tablet 20 mg PO DAILY magnesium oxide 400 mg magnesium Tablet 400 mg PO BEDTIME potassium chloride 20 mEq tablet,ER particles/crystals 40 meq PO DAILY potassium chloride 20 mEq tablet,ER particles/crystals 20 meq PO DAILY Interventions: ED Discharge Assessment Last Done: 03/16/23 22:44 Discharge Date/Time: 03/16/23 22:45
[2023-03-16 19:20] VITALS: BP 115/68; PULSE 61; RESP 13; TEMP 36.9; O2SAT 96
[2023-03-16 19:26] LABS: Hematocrit 44.8 % (42.0-52.0); Hemoglobin 15.5 g/dl (14.0-18.0); Mean Corpuscular HGB Conc 34.6 g/dl (31.0-36.0); Mean Corpuscular Hemoglobin 29.6 pg (27.0-33.0); Mean Corpuscular Volume 85.7 fL (80.0-98.0); Mean Platelet Volume 9.8 fL (9.4-12.4); Platelet Count 231 X10*3/uL (160-400); Red Blood Count 5.23 X10*6/uL (4.60-5.80); Red Cell Distribution Width 14.7 % (11.0-16.0); WBC ABN SCTR FOR CBC 1
[2023-03-16 19:36] LABS: Anion Gap 11 (12-20); Blood Urea Nitrogen 11 mg/dL (9-16); Carbon Dioxide 22 mmol/L (22-29); Chloride 111 mmol/L (96-108); Creatinine Clr Calc Pharmacy 48.6; Estimated Glomerular Filt Rate > 60; Glucose Random 101 mg/dL (60-115); Potassium 4.1 mmol/L (3.3-5.1); Sodium 140 mmol/L (135-145)
[2023-03-16 19:37] LABS: COVID-19 Test Negative (Negative); IDNOW Serial# 55D5AD1C
[2023-03-16 19:38] LABS: IDNOW Serial# 9DB6401D; Influenza A Negative (Negative); Influenza B2 Negative (Negative)
[2023-03-16 19:42] LABS: White Blood Count 10.2 X10*3/uL (4.8-10.8)
[2023-03-16 19:43] LABS: Atypical Lymph Absolute Manual 0.1 x10*3/uL; Atypical Lymphs Percent Manual 1 % (0-6); Basophils Abs Manual 0.3 X10*3/uL (0.0-0.2); Basophils Percent Manual 3 % (0-2); Eosinophils Percent Manual 10 % (0-4); Lymphocytes Absolute Manual 1.4 X10*3/uL (1.2-4.9); Lymphocytes Percent Manual 14 % (20-40); Monocytes Absolute Manual 1.5 X10*3/uL (0.1-1.2); Monocytes Percent Manual 15 % (2-11); Neutrophils Percent Manual 57 % (45-73); Platelet Estimate NORMAL (NORMAL); Platelet Morphology Comment NORMAL; RBC Morphology NORMAL
[2023-03-16 19:45] LABS: Neutrophils Absolute Manual 5.8 X10*3/uL (2.0-8.3)
--- OUTSIDE RECORDS SUMMARY | 2023-03-16 19:47 | XMS_ITS | Continuity of Care Document ---
Author Name Unknown Organization [facility] ter Address [address] [place] [id number]- Care Team Providers Care Chief Sales Officer Name Role Phone Yosef Monreal MD Primary Care Physician [place] [facility] 02/06/[address] [address]- Encounter Diagnosis Cervical spine fracture(Final) - 02/03/21 Discharge Disposition: A-Transfer SNF Attending Physician: Shelia Connors MD Admitting Physician: Shelia Connors MD Referring Physician: Not on Staff, Referring MD Allergies, Adverse Reactions, Alerts Substance Reaction Severity Status methotrexate Active Glutens Active Immunizations Given and Recorded Vaccine Date Status Refusal Reason tetanus/diphtheria/pertussis, acel(Tdap) 02/03/21 Recorded SARS-CoV-2 (COVID-19) mRNA-1273 vaccine 09/25/20 R ecorded SARS-CoV-2 (COVID-19) mRNA-1273 vaccine 08/29/20 R ecorded influenza virus vaccine, inactivated 05/30/20 Juno rded influenza virus vaccine, inactivated 05/31/19 Juno rded influenza virus vaccine, inactivated 04/16/17 Juno rded influenza virus vaccine, inactivated 05/20/16 Juno rded tetanus-diphtheria toxoids (Td) 08/17/18 Recorded Medications amLODIPine 10 mg oral tablet 10 mg, 1, tablet, By Mouth, Daily, Refills 0, Maintenance, 06/13/18 18:42:12 EST Start Date: 06/13/18 Status: Ordered amLODIPine 10 mg oral tablet 10 mg, Tablet, By Mouth, 02/06/21 9:00:00 EDT Start Date: 02/06/21 Stop Date: 02/06/21 Status: Completed aspirin 81 mg oral tablet, chewable 81 mg, 1, tablet, By Mouth, Daily, Refills 0, Maintenance, 02/06/21 11:52:00 EDT, Partial fill uponpatient request if the prescription is for a schedule II opioid drug. Start Date: 02/06/21 Status: Ordered donepezil 10 mg oral tablet 10 mg, 1, tablet, By Mouth, Daily at bedtime, Maintenance, 02/04/21 15:34:00 EDT, ; Start Date: 02/04/21 Status: Ordered hydrochlorothiazide 25 mg oral tablet 25 mg, 1, tablet, By Mouth, Daily, Refills 0, Maintenance, 06/13/18 18:44:26 EST Start Date: 06/13/18 Status: Ordered hydrOXYzine hydrochloride 10 mg oral tablet 1 tablet = 10 mg, By Mouth, 4 times a day, PRN Itch, 0 Refills, Maintenance, 02/06/21 11:52:00 EDT,Tablet, Partial fill upon patient request if the prescription is for a schedule II opioid drug. Start Date: 02/06/21 Status: Ordered memantine 10 mg oral tablet 1 tablet = 10 mg, By Mouth, 2 times a day, Maintenance, 02/04/21 15:34:00 EDT, Tablet, ; Start Date: 02/04/21 Status: Ordered QUEtiapine 25 mg oral tablet 25 mg, 1, tablet, By Mouth, Daily, Maintenance, 02/04/21 15:34:00 EDT, ; Start Date: 02/04/21 Status: Ordered sertraline 50 mg oral tablet 1 tablet = 50 mg, By Mouth, Daily, Maintenance, 02/04/21 15:34:00 EDT, Tablet, ; Start Date: 02/04/21 Status: Ordered Problem List Condition Effective Dates Status Health Status Inform ant Laceration of head(Confirmed) Active Results Radiology Reports * Exam Date Time Procedure Performing Provider Status 02/04/21 12:35 PM Ankle Min 3 Views Left Clementina Cannon ; Auth (Verified) Notes: (Ankle Min 3 Views Left) Reason For Exam: Trauma RESULT: Ankle Min 3 Views Left Ankle Min 3 Views Left Reason: Trauma; Clinical Question(s): Fracture. COMPARISON: None. FINDINGS: No evidence of acute or healing fracture or bone lesion. Intact ankle mortise and talar dome. There is mild diffuse osteoporosis. There are some vascular calcifications anterior to the distal left tibia. IMPRESSION: No definite acute bony abnormality or soft tissue swelling is noted. WSN: [id number] Ordering Physician: Nathalie Light Dictated By: Min Sequeira MD, V Dictated Date/Time: 02/04/21 1:40 pm Reviewed By: Min Sequeira MD, V Signed By: Min Sequeira MD, V Signed Date/Time: 02/04/21 1:40 pm Transcribed By: RAMON Transcribed Date/Time: 02/04/21 1:39 pm Vital Signs Most recent to oldest [Reference Range]: 1 2 3 Height 177.1 cm (02/05/21 12:37 PM) 177.1 cm (02/05/21 7:45 AM) 177.1 cm (02/05/21 7:00 AM) Weight 77.6 kg (02/05/21 7:45 AM) 77.4 kg (02/04/21 1:00 PM) Oxygen Saturation [94-100 %] 98 % (02/06/21 11:08 AM) 98 % (02/06/21 7:48 AM) 100 % (02/05/21 11:25 PM) Pulse Rate [55-90 bpm] 75 bpm (02/06/21 11:08 AM) 74 bpm (02/06/21 7:48 AM) 80 bpm (02/05/21 11:25 PM) Body Mass Index [18.5-24.99] 24.74 (02/05/21 7:45 AM) 24.68 (02/04/21 1:00 PM) Blood Pressure [90-138/55-84 mm Hg] 127/54mm Hg (02/06/21 11:08 AM) 139/82mm Hg *H* (02/06/21 9:12 AM) 142/68mm Hg *H* (02/06/21 7:48 AM) Respiratory Rate [16-30 br/min] 20 br/min (02/06/21 11:08 AM) 19 br/min (02/06/21 7:48 AM) 20 br/min (02/05/21 11:25 PM) Temperature [96.8-100.4 DegF] 98.4 DegF (02/06/21 11:08 AM) 98.6 DegF (02/06/21 7:48 AM) 98.9 DegF (02/05/21 11:25 PM) Liters per Minute 0 L/min (02/05/21 12:37 PM) 0 L/min (02/05/21 7:00 AM) 0 L/min (02/04/21 4:09 PM) Mode of Delivery (Oxygen) Room air (02/06/21 11:08 AM) Room air (02/06/21 7:48 AM) Room air (02/05/21 11:25 PM) Blood pressure sites Arm, left (02/06/21 11:08 AM) Arm, left (02/06/21 7:48 AM) Arm, left (02/05/21 11:25 PM) Temperature Route Oral (02/06/21 11:08 AM) Temporal (02/06/21 7:48 AM) Temporal (02/05/21 11:25 PM) Dry Weight 77.6 kg (02/05/21 7:45 AM) 77.4 kg (02/04/21 1:00 PM) Weight Obtained Via Standing scale (02/05/21 7:45 AM) Bed scale (02/04/21 1:00 PM) Dry Weight Obtained Via Standing scale (02/05/21 7:45 AM)
--- OUTSIDE RECORDS SUMMARY | 2023-03-16 19:47 | XMS_ITS | Continuity of Care Document ---
Author Name Unknown Organization [facility] Address Unknown Care Team Providers Care Crude Oil Treater Name Role Phone Yosef Monreal MD Primary Care Physician [place] [facility] [place]21 [facility] Attending Physician: AdmtrIzzy Admitting Physician: AdmtrIzzy Referring Physician: AdmtrIzzy Allergies, Adverse Reactions, Alerts Substance Reaction Severity [...] rded tetanus-diphtheria toxoids (Td) 08/17/18 Recorded Medications acetaminophen 325 mg oral tablet 650 mg, 2, tablet, By Mouth, Every 4 hours, PRN, Maintenance, fever/pain, 02/07/21 16:09:00 EDT, ; Start Date: 02/07/21 Status: Ordered amLODIPine 10 mg oral tablet 10 mg, 1, tablet, By Mouth, Daily, Refills 0, Maintenance, 06/13/18 18:42:12 EST Start Date: 06/13/18 Status: Ordered aspirin 81 mg oral tablet, chewable chew 1 tablet, By Mouth, Daily, Maintenance, 02/07/21 16:06:00 EDT, ; Start Date: 02/07/21 Status: Ordered Augmentin 875 Tablet 1, tablet, By Mouth, 2 times a day, # 4 tablet, Refills 0, Maintenance, 02/10/21 9:57:00 EDT Start Date: 02/10/21 Stop Date: 02/12/21 Status: Ordered bisacodyl 10 mg rectal suppository 1 supp = 10 mg, Rectally, Daily, PRN for constipation, if no BM 8 hrs after MOM, Maintenance, 02/07/21 16:10:00 EDT, Suppository, ; Start Date: 02/07/21 Status: Ordered donepezil 10 mg oral tablet 10 mg, 1, tablet, By Mouth, Daily at bedtime, Maintenance, 02/04/21 15:34:00 EDT, ; Start Date: 02/04/21 Status: Ordered Doxycycline Tablet 100 mg, By Mouth, Every 12 hours, # 4, Refills 0, Maintenance, 02/10/21 9:57:00 EDT Start Date: 02/10/21 Stop Date: 02/12/21 Status: Ordered Fleet Enema 19 gm-7 gm rectal enema 1 each, Rectally, Once, PRN for constipation, step 3, Maintenance, 02/07/21 16:12:00 EDT, Enema, ; Start Date: 02/07/21 Status: Ordered hydrochlorothiazide 25 mg oral tablet 25 mg, 1, tablet, By Mouth, Daily, Refills 0, Maintenance, 06/13/18 18:44:26 EST Start Date: 06/13/18 Status: Ordered hydrOXYzine hydrochloride 10 mg oral tablet 1 tablet = 10 mg, By Mouth, Every 6 hours, PRN Itch, 0 Refills, Maintenance, 02/06/21 11:52:00 EDT,Tablet, ; Start Date: 02/06/21 Status: Ordered Magnesium Citrate 1 bottle, By Mouth, Daily, PRN Constipation, step 4, Maintenance, 02/07/21 16:11:00 EDT, ; Start Date: 02/07/21 Status: Ordered memantine 10 mg oral tablet 1 tablet = 10 mg, By Mouth, 2 times a day, Maintenance, 02/04/21 15:34:00 EDT, Tablet, ; Start Date: 02/04/21 Status: Ordered Milk of Magnesia 30 mL, By Mouth, Daily at bedtime, 400mg/5ml step 1 if no BM in 3 days, Maintenance, 02/07/21 16:13:00 EDT, ; Start Date: 02/07/21 Status: Ordered Narcan 4 mg/0.1 mL nasal spray = 4 mg, Naris, Left, Once, Maintenance, 02/07/21 16:14:00 EDT, ; Start Date: 02/07/21 Status: Ordered QUEtiapine 25 mg oral tablet 25 mg, 1, tablet, By Mouth, Daily at bedtime, Maintenance, 02/04/21 15:34:00 EDT, ; Start Date: 02/04/21 Status: Ordered sertraline 50 mg oral tablet 1 tablet = 50 mg, By Mouth, Daily, Maintenance, 02/04/21 15:34:00 EDT, Tablet, ; Start Date: 02/04/21 Status: Ordered Problem List Condition Effective Dates Status Health Status Inform ant Laceration of head(Confirmed) Active
--- OUTSIDE RECORDS SUMMARY | 2023-03-16 19:47 | XMS_ITS | Continuity of Care Document ---
Author Name Unknown Organization [facility] Address [address] [place] [address]- Care Team Providers Care Retail Sales Specialist Name Role Phone Yosef Monreal MD Primary Care Physician Encounter [facility] [place] Date(s): 11/09/20 - 12/09/20 [facility] [address] [place] [id number] Attending Physician: Izzy Pastor Admitting Physician: AdmtrIzzy Referring Physician: AdmtrIzzy Allergies, Adverse Reactions, Alerts Substance Reaction Severity Status methotrexate Active Glutens Active Medications amLODIPine 10 mg oral tablet 10 mg, 1, tablet, By Mouth, Daily, Refills 0, Maintenance, 06/13/18 18:42:12 EST Start Date: 06/13/18 Status: Ordered aspirin 81 mg oral tablet 1 tablet = 81 mg, By Mouth, Daily, # 30 tablet, 0 Refills, Maintenance, 06/13/18 18:39:24 EST, Tablet Start Date: 06/13/18 Status: Ordered clobetasol 0.05% topical cream 1 applicator, Topically, 2 times a day, PRN Itch, 0 Refills, Maintenance, 06/13/18 18:40:05 EST Start Date: 06/13/18 Status: Ordered Glucosamine 2 tabs, By Mouth, Daily, 0 Refills, Maintenance, 06/13/18 18:39:36 EST Start Date: 06/13/18 Status: Ordered hydrochlorothiazide 25 mg oral tablet 25 mg, 1, tablet, By Mouth, Daily, # 30 tablet, Refills 0, Maintenance, 06/13/18 18:44:26 EST Start Date: 06/13/18 Status: Ordered HydroCORTisone 0.5% Topical See Instructions, 0 Refills, Maintenance Start Date: 06/13/18 Status: Ordered hydrOXYzine hydrochloride 10 mg oral tablet 1 tablet = 10 mg, By Mouth, 4 times a day, PRN as needed for itching, 0 Refills, Maintenance, 06/13/18 18:37:05 EST Start Date: 06/13/18 Status: Ordered Klor-Con 10 mEq oral tablet, extended release 2 tablet = 20 mEq, By Mouth, 2 times a day, 0 Refills, Maintenance, 06/13/18 18:42:48 EST Start Date: 06/13/18 Status: Ordered LORazepam 0.5 mg oral tablet 1 tablet = 0.5 mg, By Mouth, Every 6 hours, PRN as needed for anxiety, 0 Refills, Maintenance, 06/13/18 18:43:35 EST Start Date: 06/13/18 Status: Ordered Metamucil 1.7 gm oral wafer 2 each = 3.4 Gm, By Mouth, Daily, 0 Refills, Maintenance, 06/13/18 18:45:18 EST Start Date: 06/13/18 Status: Ordered Triamcinolone Intra-articular, Daily, 0 Refills, Maintenance, 06/13/18 18:44:45 EST Start Date: 06/13/18 Status: Ordered triamcinolone 0.1% topical cream 1 application, Topically, 3 times a day, PRN Itch, # 30 Gm, 0 Refills, Acute, 06/13/18 22:00:33 EST, Cream Start Date: 06/13/18 Status: Ordered Tylenol Caplet = 650 mg, By Mouth, Every 4 hours, PRN as needed for pain, 0 Refills, Maintenance, 06/13/18 18:38:55 EST Start Date: 06/13/18 Status: Ordered
--- OUTSIDE RECORDS SUMMARY | 2023-03-16 19:47 | XMS_ITS | Continuity of Care Document ---
Author Name Unknown Organization [facility] Address [address] [place] [address]- Care Team Providers Care Field Director Name Role Phone Jocelin RICH, Yosef Turcios Primary Care Physician [place] [facility] [place](s): 11/09/20 - 01/13/21 [facility] [place], [place] [address] Discharge Disposition: A-D/C Home Attending Physician: Tang Koch MD Admitting Physician: Tang Koch MD Referring Physician: Evan Valdez MD Allergies, Adverse Reactions, Alerts Substance Reaction [...] 18:38:55 EST Start Date: 06/13/18 Status: Ordered Vital Signs Most recent to oldest [Reference Range]: 1 Height 176 cm (11/13/20 10:45 AM) Weight 60.4 kg (11/13/20 10:45 AM) Oxygen Saturation [94-100 %] 99 % (11/13/20 10:45 AM) Pulse Rate [55-90 bpm] 84 bpm (11/13/20 10:45 AM) Body Mass Index [18.5-24.99] 19.5 (11/13/20 10:45 AM) Blood Pressure [90-138/55-84 mm Hg] 129/ 70mm Hg (11/13/20 10:45 AM) Temperature [96.8-100.4 DegF] 98.3 DegF (11/13/20 10:45 AM) Blood pressure sites Arm, right (11/13/20 10:45 AM) Temperature Route Temporal (11/13/20 10:45 AM) Dry Weight 60.4 kg (11/13/20 10:45 AM) Weight Obtained Via Standing scale (11/13/20 10:45 AM) Dry Weight Obtained Via Standing scale (11/13/20 10:45 AM)
--- OUTSIDE RECORDS SUMMARY | 2023-03-16 19:47 | XMS_ITS | Continuity of Care Document ---
Author Name Unknown Organization [facility] ter Address [address] [place] [phone]- Care Team Providers Care Litigation Assistant Name Role Phone Elder , Negin Mcclain Primary Care Physicia n Encounter [facility] Date(s): 02/07/21 - 02/10/[address] [address] Discharge Disposition: A-Transfer SNF Attending Physician: Yonathan Corcoran MD Admitting Physician: Charbel Galindo MD Referring Physician: Not on Staff, Referring [...] EDT, ; Start Date: 02/07/21 Status: Ordered Norvasc 10 mg oral tablet 10 mg, Tablet, By Mouth, 02/10/21 9:00:00 EDT Start Date: 02/10/21 Stop Date: 02/10/21 Status: Completed QUEtiapine 25 mg oral tablet 25 mg, [...] Exam Date Time Procedure Performing Provider Status 02/07/21 2:44 PM Chest 2 Views Frontal and Lat Izzy Tabares; Auth (Verified) Notes: (Chest 2 Views Frontal and Lat) Reason For Exam: Shortness of Breath, Fever;Other: RESULT: Chest 2 Views Frontal and Lat Chest 2 Views Frontal and Lat HISTORY OF PRESENT ILLNESS: fall four days ago, sniff states patient has increased altered mental status; Reason: Shortness of breath and fever COMPARISON: Chest x-ray of 06/12/2018 (report only) FINDINGS: LINES AND TUBES: None. LUNGS AND PLEURA: Low lung volumes with mild bronchovascular crowding. Curvilinear opacities in the left infrahilar lung region. No pleural effusion. No pneumothorax. HEART, MEDIASTINUM AND EMERITA: Heart is normal in size. Normal upper mediastinal and hilar contour. BONES AND SOFT TISSUES: Chronic fracture deformity of the right midclavicle. No displaced rib fractures are appreciated. IMPRESSION: Curvilinear opacity in the left infrahilar region which may represent subsegmental atelectasis, however, developing pneumonia cannot be excluded. I have personally reviewed the images and I agree with this report. WSN: [id number] Ordering Physician: Anjana Armijo Dictated By: Krystle Lynch DO Dictated Date/Time: 02/07/21 3:12 pm Reviewed By: Shan Purvis MD Signed By: Shan Purvis MD Signed Date/Time: 02/07/21 3:17 pm Transcribed By: RAMON Transcribed Date/Time: 02/07/21 2:56 pm Vital Signs Most recent to oldest [Reference Range]: 1 2 3 Height 175 cm (02/10/21 5:09 AM) 175 cm (02/09/21 8:17 PM) 175 cm (02/09/21 2:17 PM) Weight 71.3 kg (02/08/21 1:35 AM) Oxygen Saturation [94-100 %] 100 % (02/10/21 5:09 AM) 96 % (02/09/21 8:17 PM) 98 % (02/09/21 2:17 PM) Pulse Rate [55-90 bpm] 77 bpm (02/10/21 5:09 AM) 88 bpm (02/09/21 8:17 PM) 85 bpm (02/09/21 2:17 PM) Body Mass Index [18.5-24.99] 23.28 (02/08/21 1:35 AM) Blood Pressure [90-138/55-84 mm Hg] 138/84mm Hg (02/10/21 9:45 AM) 146/65mm Hg *H* (02/10/21 5:09 AM) 139/72mm Hg *H* (02/09/21 8:17 PM) Respiratory Rate [16-30 br/min] 18 br/min (02/10/21 5:09 AM) 18 br/min (02/09/21 8:17 PM) 60 br/min *H* (02/09/21 2:17 PM) Temperature [96.8-100.4 DegF] 98.0 DegF (02/10/21 5:09 AM) 98.8 DegF (02/09/21 8:17 PM) 98.4 DegF (02/09/21 2:17 PM) Mode of Delivery (Oxygen) Room air (02/10/21 5:09 AM) Room air (02/09/21 8:17 PM) Room air (02/09/21 2:17 PM) Blood pressure sites Arm, right (02/10/21 5:09 AM) Arm, right (02/09/21 8:17 PM) Arm, right (02/09/21 2:17 PM) Temperature Route Oral (02/10/21 5:09 AM) Oral (02/09/21 8:17 PM) Oral (02/09/21 2:17 PM) Weight Obtained Via Bed scale (02/08/21 1:35 AM)
--- NOTE | 2023-03-16 19:50 | PHA.MEDREC ---
Pharmacy Consult ? Medication Reconciliation Pharmacy has completed the medication reconciliation. Patient came from [facility] with medication list. There are 2 order of KCl - 20 meq and 40 meq. Per Claim history, 3 tablets of KCL 20 mEq are being filled for a total of 60 meq. Yuki Anaya, PharmD
[2023-03-16 20:00] VITALS: BP 124/72; PULSE 58; RESP 18; O2SAT 97
--- NOTE | 2023-03-16 20:33 | PC.NURSE ---
Assumed care of pt. Pt lying on stretcher, [facility], asnwering questions. Pt denies pain at this time, no respiratory distress, daughter/son-in-law present at bedside. PLan to evaluate lab findings, obtain additoinal as orderd.
[2023-03-16 20:49] LABS: Lactic Acid 1.2 mmol/L (0.5-2.0)
[2023-03-16] MEDS: Azithromycin 500 MG TABLET PO (21:31)
--- NOTE | 2023-03-16 21:34 | PC.NURSE ---
Medicated pt with no complications.
[2023-03-16 22:19] VITALS: BP 107/65; PULSE 65; RESP 17; TEMP 36.5; O2SAT 97
--- NOTE | 2023-03-16 22:45 | PC.NURSE ---
Report given to Jordyn [facility] RN
== END 2023-03-16 22:45 | disposition skilled nursing facility (03) ==
PROVIDERS: Emergency Provider Internal Medicine; PCP Family Medicine
DX: J18.9 Pneumonia, unspecified organism (principal); F03.90 Unspecified dementia, unspecified severity, without behavioral disturbance, psychotic disturbance, mood disturbance, and anxiety; R50.9 Fever, unspecified; I10 Essential (primary) hypertension; R05.9 Cough, unspecified; Z20.822 Contact with and (suspected) exposure to COVID-19; Z20.828 Contact with and (suspected) exposure to other viral communicable diseases; Z79.899 Other long term (current) drug therapy
CPT/HCPCS: 36415; 71045; 80048; 83605; 85007; 85027; 87040; 87502; 87635; 99283

== ENCOUNTER → 2024-03-23 14:58 | Outpatient (RCR) | payer MEDICARE, SELFPAY ==
[2020-09-25 08:19] VITALS: BP 147/73; PULSE 73; RESP 12; TEMP 36.7; O2SAT 99; BMI 25.2
[2020-09-25 08:30] LABS: MANUAL DIFF FLAG NO
--- NOTE | 2020-09-25 08:39 | P.PNHO_ITS ---
Medical Summary - Medical Summary Date of Service: 09/25/20 Chief complaint: Follow-up Medical Summary: Diagnosis: T-cell prolymphocytic leukemia Patient diagnosed with gradually worsening leukocytosis in August 2017. Since 2016 white count has been trending up, currently around 20 K. mild lymphocytosis of 59%, no anemia or abnormal platelet counts. He was diagnosed with psoriasis in 2015, has been on multiple immunosuppressive agents. He was on humira for about 18 months, he developed a seizure after 6 weeks of methotrexate and this was stopped. Humira was stopped because he progressed on it. Now on tremyfa, guselkumab (interleukin 23 inhibitor). Blood flow cytometry showed CD4 positive T-cell lymphoproliferative disorder, T- cell prolymphocytic leukemia. Atypical CD4 positive T-cell population that coexpressed CD2, CD3, CD5, CD7, CD52 and dim cTCL-1. Negative for CD34 and CD25. No abnormal bands on serum immunofixation, LDH is mildly elevated 297, beta-2 microglobulin elevated at 5.32. CT chest/abd/pelvis from 10/23/17, enlarged b/l axillary LN's 2-3 cms, multiple pulmonary micronodules, prominent bilateral inguinal and external iliac lymph nodes and smaller lower abdominal and upper pelvic retroperitoneal lymph nodes. No hepatosplenomegaly. I discussed diagnosis of prolymphocytic leukemia which is rare neoplasm involving blood, bone marrow, lymph nodes. There is no spleen involvement in his case. Patient does not have symptoms of weight loss, weakness/night sweats or symptomatic lymphadenopathy. He does not have anemia or thrombocytopenia. I discussed that there is no indication to treat at this time, I have recommended a period of observation. A blood lymphocyte doubling time less than 8.5 months has been associated with worse prognosis. Treatment involves anti-CD 52 antibody alemtuzumab as initial treatment for T- PLL. This therapy is associated with increased risk of opportunistic infections such as fatal bacteria, vital, fungal and protozoal infection as well as reactivation of CMV. Prophylactic regimen including antibiotics and antiviral therapy would need to be used. This therapy can induce remission but not long- term cure, allogenic bone marrow transplant in patients that are candidates for transplant may be associated with cure. Interval History Interval history: Patient is here accompanied by his daughter today. Overall he has declined gradually in the last year or so. He is unable to walk on his own outside the house. His vision as well as hearing has decreased considerably. He continues to have problems with his skin. He denies any fever, chills, night sweats or unexplained weight loss. He received COVID-19 vaccine. [facility] Medical History: Medical History (Last Updated 09/25/20 @ 07:45 by Libby Willoughby) Dementia Eczema Frequent falls HTN (hypertension) Prostate cancer Psoriasis Seizure TIA (transient ischemic attack) Family History: Family History (Last Updated 09/25/20 @ 07:45 by Libby Willoughby) Father Myocardial infarction Mother Acute CVA (cerebrovascular accident) Breast cancer Sister Breast cancer Family/Other Leukemia Surgical History: Surgical History (Last Reviewed 08/10/20 @ 09:38 by SILVERIO Garcia) History of prostatectomy History of surgery Social History: Social History (Last Updated 09/25/20 @ 08:21 by Libby Willoughby) Alcohol History: Alcohol intake: current Alcohol History Details: Alcohol intake frequency: holiday/special occasion Alcohol type: wine Tobacco History: Smoking Status: Former smoker Substance Use History: Use of substances other than those prescribed or required for medical reasons : No Smoking status: Former smoker Home Medications and Allergies Allergies Allergy/AdvReac Type Severity Reaction Status Date / Time methotrexate [METHOTREXATE] Allergy Unknown SEIZURE, Verified 06/18/20 08:55 SEIZURES Exam Vital signs: Vital Signs Temp 98.1 F 09/25/20 08:19 Pulse 73 09/25/20 08:19 Resp 12 09/25/20 08:19 BP 147/73 H 09/25/20 08:19 Pulse Ox 99 09/25/20 08:19 Intake & Output 09/24/20 09/25/20 09/25/20 18:59 06:59 18:59 Other: Weight 77.6 kg Weight in Grams 36509 Weight 77.6 kg Body Mass Index 25.2 - Constitutional Present: no acute distress - Routine HEENT Exam Head: Present: normal inspection Eye: Present: EOMI, normal appearance - Routine Neck Exam Present: normal inspection - Routine Respiratory Exam Present: CTAB - Routine Cardiovascular Exam Cardiovascular: Present: S1, S2 - Routine Abdominal Exam Present: soft Data - Labs CBC & Chem 7: 09/25/20 08:29 09/25/20 08:29 Progress Note: A/P (1) Lymphocytosis Status: Chronic Assessment and plan: 1. This is an 85-year-old male with T-cell prolymphocytic leukemia, presenting with lymphocytosis and lymphadenopathy. Bone marrow biopsy performed 10/30/17 showed hypercellular marrow with active trilineage hematopoiesis, increased number of small to medium lymphocytes, 17%, flow cytometry showed involvement by CD4 + positive T-cell lymphoproliferative disorder consistent with T-cell p rolymphocytic leukemia. Normal karyotype 46 XY. FISH analysis?. CMV, hepatitis and HSV I/II serologies negative. PCR for HTLV type 1 not performed. Patient remains asymptomatic from his chronic leukemia. His blood counts are stable. He does not have any lymphadenopathy on physical examination. Daughter expressed difficulty bringing patient for multiple appointments. I have discussed with them that his PCP can perform CBC and monitor blood counts twice a year. - Time Spent With Patient Total time spent is greater than 50% in coordination of care (as documented) at patient's floor/unit and/or counseling patient: 15 - 24 minutes
[2020-09-25 09:12] LABS: Basophils Absolute Auto 0.1 X10*3/uL (0.0-0.2); Basophils Percent Auto 0.8 % (0-2); Eosinophils Absolute Auto 0.5 X10*3/uL (0.0-0.4); Eosinophils Percent Auto 5.5 % (0-4); Hematocrit 43.9 % (42-52); Hemoglobin 14.7 g/dl (14.0-18.0); Imm Gran Abs Auto 0.03 X10*3/uL (0.00-0.03); Imm Gran Pct Auto 0.4 % (0.0-0.4); Lymphocytes Absolute Auto 1.4 X10*3/uL (1.2-4.9); Lymphocytes Percent Auto 16.2 % (20-40); Mean Corpuscular HGB Conc 33.5 g/dl (31.0-36.0); Mean Corpuscular Hemoglobin 28.7 pg (27.0-33.0); Mean Corpuscular Volume 85.6 fL (80-98); Mean Platelet Volume 10.8 fL (9.4-12.4); Monocytes Absolute Auto 0.7 X10*3/uL (0.1-1.2); Monocytes Percent Auto 8.9 % (2-11); Neutrophils Absolute Auto 5.7 X10*3/uL (2.0-8.3); Neutrophils Percent Auto 68.2 % (45-73); Platelet Count 234 X10*3/uL (160-400); Red Blood Count 5.13 X10*6/uL (4.60-5.80); Red Cell Distribution Width 14.2 % (11.0-16.0); White Blood Count 8.3 X10*3/uL (4.8-10.8)
--- NOTE | 2020-09-25 09:23 | MHC.HEMONCMA ---
Patient was here for a follow up today, states he is doing well, has no complaints. clinical summary was reviewed and updated. Patient had labs done and will return for a follow up based off what his labs indicate.
[2020-09-25 09:53] LABS: Alanine Aminotransferase 14 U/L (0-40); Albumin Level 4.1 g/dL (3.5-5.0); Alkaline Phosphatase 141 U/L (39-117); Anion Gap 15 (12-20); Aspartate Amino Transferase 16 U/L (5-37); Bilirubin Total 0.7 mg/dL (0.0-1.0); Blood Urea Nitrogen 20 mg/dL (9-16); Calcium 9.8 mg/dL (8.4-10.2); Carbon Dioxide 23 mmol/L (22-29); Chloride 110 mmol/L (96-108); Creatinine Clr Calc Pharmacy 47.4; Estimated Glomerular Filt Rate 59; Glucose Random 111 mg/dL (60-115); Potassium 3.7 mmol/L (3.3-5.1); Sodium 144 mmol/L (135-145); Total Protein 7.1 g/dL (6.5-8.0)
--- NOTE | 2020-09-25 14:25 | MHC.HEMONCMA ---
Called and spoke with the patient's , I let her know that the doctor sent an rx for iron to his pharmacy since his counts were a little low. BID with food, and to take a laxative if he becomes constipated. Patient's agrees and understands plan.
--- NOTE | 2021-05-22 15:50 | MHC.HEMONC ---
Spoke with Negrita BRUNER who saw pt today and is familiarizing herself with pt. She did indicate that pt is frail and having difficulty managing appointments. According to Dr Mccracken's note in September, pt was also noted to be weak and unable to attend appointments. She did not order f/u as pt blood counts are stable and that his PCP, Dr Monreal could follow pt and monitor blood counts. Pt was in ER with cellulitis one month ago and CBC was WNL. I conveyed all of this to Negrita and she said that it was helpful and she will f/u with pt PCP as needed.
== END | disposition home or self-care (01) ==
LOC: HO.ONC 09-25 08:00
PROVIDERS: PCP Internal Medicine; Visit Provider Internal Medicine
DX: C91.60 Prolymphocytic leukemia of T-cell type not having achieved remission (principal)
CPT/HCPCS: 36415; 80053; 85025; 99213